=== PATIENT | female | born 1965 | race Caucasian/White ===

== ENCOUNTER 2020-07-15 14:09 | Outpatient (REF) | payer OTHER, SELFPAY | END 2020-07-15 14:10 | disposition home or self-care (01) | LOC: HO.LAB 14:09 | PROVIDERS: Visit Provider Internal Medicine | DX: Z20.828 Contact with and (suspected) exposure to other viral communicable diseases (principal) | CPT/HCPCS: C9803; U0003 ==

== ENCOUNTER 2020-09-25 10:33 | Outpatient (REF) | payer OTHER, SELFPAY | END 2020-09-25 10:34 | disposition home or self-care (01) | LOC: HO.LAB 10:33 | PROVIDERS: Visit Provider Internal Medicine | DX: Z20.822 Contact with and (suspected) exposure to COVID-19 (principal) | CPT/HCPCS: 36415; C9803; U0003 ==

== ENCOUNTER 2020-11-24 11:48 | Outpatient (REF) | payer OTHER, SELFPAY | END 2020-11-24 11:49 | disposition home or self-care (01) | LOC: HO.LAB 11:48 | PROVIDERS: Visit Provider Internal Medicine | DX: Z20.822 Contact with and (suspected) exposure to COVID-19 (principal) | CPT/HCPCS: 36415; C9803; U0003; U0005 ==

== ENCOUNTER 2020-12-04 10:13 | Outpatient (REF) | payer OTHER, SELFPAY ==
[2020-12-04 14:26] LABS: SARS COV2 PCR INHOUSE NEGATIVE (Negative)
== END 2020-12-04 10:14 | disposition home or self-care (01) ==
LOC: HO.LAB 10:13
PROVIDERS: Visit Provider Internal Medicine
DX: Z20.822 Contact with and (suspected) exposure to COVID-19 (principal)
CPT/HCPCS: C9803; U0003

== ENCOUNTER 2020-12-31 09:33 | Outpatient (REF) | payer OTHER, SELFPAY | END 2020-12-31 09:34 | disposition home or self-care (01) | LOC: HO.LAB 09:33 | PROVIDERS: Visit Provider Internal Medicine | DX: Z20.822 Contact with and (suspected) exposure to COVID-19 (principal) | CPT/HCPCS: C9803; U0003; U0005 ==

== ENCOUNTER 2021-01-09 17:15 | Emergency (ER) | payer OTHER, SELFPAY ==
--- NOTE | ~2021-01-09 | XR_ITS ---
EXAMINATION: XR CHEST CLINICAL INFORMATION: Chest pain COMPARISON: None TECHNIQUE: Frontal view of the chest was obtained. FINDINGS: No significant abnormality is noted involving the heart, lungs, mediastinum, bony thorax or soft tissues. XR/XR chest 1V IMPRESSION: Normal portable chest x-ray.
[2021-01-09 17:50] VITALS: BP 126/54; PULSE 69; RESP 16; TEMP 36.3; O2SAT 98; BMI 23.5
--- NOTE | 2021-01-09 18:32 | ECG_ITS ---
Test Reason : CP Blood Pressure : / mmHG Vent. Rate : 060 BPM Atrial Rate : 060 BPM P-R Int : 162 ms QRS Dur : 084 ms QT Int : 406 ms P-R-T Axes : 013 016 022 degrees QTc Int : 406 ms Normal sinus rhythm Normal ECG No previous ECGs available Referred By: Generic ED Physician Electronically Signed By:NATE PRATER
[2021-01-09 19:57] LABS: MANUAL DIFF FLAG NO
[2021-01-09 19:58] LABS: Basophils Percent Auto 0.5 % (0-2); Eosinophils Absolute Auto 0.1 X10*3/uL (0.0-0.4); Hematocrit 35.7 % (37-47); Hemoglobin 11.8 g/dl (12.0-16.0); Imm Gran Abs Auto 0.01 X10*3/uL (0.00-0.03); Imm Gran Pct Auto 0.1 % (0.0-0.4); Lymphocytes Absolute Auto 3.9 X10*3/uL (1.2-4.9); Mean Corpuscular HGB Conc 33.1 g/dl (31.0-35.0); Mean Corpuscular Hemoglobin 29.7 pg (27.0-33.0); Mean Corpuscular Volume 89.9 fL (80-98); Mean Platelet Volume 9.8 fL (9.4-12.3); Monocytes Absolute Auto 0.5 X10*3/uL (0.1-1.2); Neutrophils Absolute Auto 4.1 X10*3/uL (2.0-8.3); Neutrophils Percent Auto 47.4 % (45-73); Platelet Count 312 X10*3/uL (160-400); Red Blood Count 3.97 X10*6/uL (4.20-5.50); Red Cell Distribution Width 13.4 % (11.0-16.0); White Blood Count 8.7 X10*3/uL (4.8-10.8)
[2021-01-09 20:30] LABS: Alanine Aminotransferase 27 U/L (0-31); Albumin Level 4.4 g/dL (3.5-5.0); Alkaline Phosphatase 88 U/L (39-117); Anion Gap 11 (12-20); Aspartate Amino Transferase 21 U/L (5-31); Bilirubin Direct 0.2 mg/dL (0.0-0.5); Bilirubin Total 0.6 mg/dL (0.0-1.0); Blood Urea Nitrogen 16 mg/dL (9-16); Calcium 9.7 mg/dL (8.4-10.2); Carbon Dioxide 29 mmol/L (22-29); Chloride 106 mmol/L (96-108); Creatinine Clr Calc Pharmacy 97.4; Estimated Glomerular Filt Rate > 60; Glucose Random 66 mg/dL (60-115); Magnesium 2.3 mg/dL (1.6-2.6); Potassium 4.1 mmol/L (3.3-5.1); Sodium 142 mmol/L (135-145); Total Protein 7.3 g/dL (6.5-8.0)
--- NOTE | 2021-01-09 20:35 | ED_ITS ---
HPI - Chest Pain General Chief Complaint: Chest Pain Stated Complaint: Chest pain Time Seen by Provider: 01/09/21 18:48 Source: patient Mode of arrival: ambulatory History of Present Illness HPI narrative: 55-year-old female with a past medical history of GERD, C- section, presenting to the ED complaining of left-sided chest pain radiating down left arm x3 days described as pressure/tightness. Admits pain is been constant. Denies pain being worse with deep inspiration. Denies fever, chills, cough, SOB, numbness, tingling, weakness, abdominal pain, nausea/vomiting, LE edema, smoking, recent travel, history of blood clots complaint: chest heaviness Related Data Home Medications Medication Instructions Recorded Confirmed No Known Home Meds 01/06/21 01/06/21 Allergies Allergy/AdvReac Type Severity Reaction Status Date / Time No Known Allergies Allergy Verified 01/06/21 10:19 [No Known Allergies*] Review of Systems Review of Systems: Constitutional: No Fever, No Chills, No Night Sweats, No Fatigue, No Malaise Cardiovascular: + Chest Pain, No SOB, No Dyspnea on Exertion, No Orthopnea, No Edema, No Palpitations Respiratory: No Cough, No Sputum, No Dyspnea Gastrointestinal: No Nausea, No Vomiting, No Diarrhea, No Abdominal pain Musculoskeletal: No joint pain, No Myalgias Skin: No Skin Lesions, No rash Neuro: No Weakness, No Numbness, No Paresthesias, No Dizziness Yes all other systems are reviewed and are negative PMFSH Past Medical History Attestation statement: The following information was validated with the patient. Medical History (Updated 01/09/21 @ 20:43 by RIOS Orantes) GERD (gastroesophageal reflux disease) Pectus excavatum Surgical History History of section Family History Family History Father Diabetes Hypertension Mother Diabetes Hypertension Maternal Grandfather Cancer Maternal Aunt Cancer Social History Social History Alcohol intake: never Smoking Status: Never smoker Tobacco Type: Cigarette Advance Directives: No Advance Directives Information Provided: Yes Patient : No Physical Exam Vital Signs: Vital Signs: Last Vital Signs Temp 97.4 F 01/09/21 17:50 Pulse 69 01/09/21 17:50 Resp 16 01/09/21 17:50 BP 126/54 L 01/09/21 17:50 Pulse Ox 98 01/09/21 17:50 Body Mass Index 23.5 Const: General: cooperative, healthy appearing, comfortable, no acute distress, well developed, alert and awake Orientation/consciousness: patient oriented x3 Limitations: no limitations HENMT: Head: Yes normal to inspection Ears: hearing grossly normal bilaterally General nose exam: Normal external nose present Face and sinus: Yes normal facial exam Eyes: General: appearance normal, both eyes and all related structures EOM: EOMs intact bilaterally Neck: Neck: Yes normal visual inspection and Yes no meningeal signs Chest: Other: + tenderness to left anterior chest wall reproducing subjective complaint Chest palpation & inspection: normal inspection of the chest, no crepitus and tenderness Resp: Effort & Inspection: normal respiratory effort Auscultation: clear to auscultation bilaterally, no rales, no rhonchi and no wheezes Cardio: Rate: regular rate Heart sounds: S1 normal heart sound present and S2 normal heart sound present GI: Inspection: Yes normal to inspection Palpation (GI): Soft to palpation, nontender, no guarding and not rigid Skin: Rashes: no rashes Wounds: no wounds Neuro: General: patient oriented x3 and no meningeal signs Gait exam (Neuro): Normal gait present Extrem: General: Yes normal to inspection, Yes no pedal edema and Yes no calf tenderness Course Course Course Narrative: -labs unremarkable including negative troponin XR chest 1V IMPRESSION: Normal portable chest x-ray. > results discussed with patient with diplomatic interpreter/translator including worrisome signs and symptoms and strict return precautions. MDM - Chest Pain MDM Narrative Medical decision making narrative: 55-year-old female with a past medical history of GERD, , presenting to the ED complaining of left-sided chest pain radiating down left arm x3 days described as pressure/tightness. On exam VSS, NAD/well-appearing, chest pain is reproducible, lungs CTA, no LE edema or calf tenderness. Concern for ACS vs pneumonia. Unlikely PE/CHF or viral syndrome/COVID-19 Plan: EKG, labs, CXR, reassess Medical Records Data Attestation: I reviewed the patient's medical records. Lab Data Attestation: I reviewed the patient's lab results. Result diagrams: 01/09/21 19:52 01/09/21 19:51 Labs: Lab Results 01/09/21 01/09/21 01/09/21 Range/Units 19:51 19:51 19:52 WBC 8.7 (4.8-10.8) X10*3/uL RBC 3.97 L (4.20-5.50) X10*6/uL Hgb 11.8 L (12.0-16.0) g/dl Hct 35.7 L (37-47) % MCV 89.9 (80-98) fL MCH 29.7 (27.0-33.0) pg MCHC 33.1 (31.0-35.0) g/dl RDW 13.4 (11.0-16.0) % Plt Count 312 (160-400) X10*3/uL MPV 9.8 (9.4-12.3) fL Immature Gran % (Auto) 0.1 (0.0-0.4) % Neut % (Auto) 47.4 (45-73) % Lymph % (Auto) 45.0 H (20-40) % [place] % (Auto) 6.0 (2-11) % Eos % (Auto) 1.0 (0-4) % Baso % (Auto) 0.5 (0-2) % Lymph # (Auto) 3.9 (1.2-4.9) X10*3/uL [place] # (Auto) 0.5 (0.1-1.2) X10*3/uL Eos # (Auto) 0.1 (0.0-0.4) X10*3/uL Baso # (Auto) 0.0 (0.0-0.2) X10*3/uL Abs Immat Gran (auto) 0.01 (0.00-0.03) X10*3/uL Absolute Neuts (auto) 4.1 (2.0-8.3) X10*3/uL Absolute Nucleated RBC 0.000 (0.0-0.012) X10*3/uL Nucleated RBC % (auto) 0.0 (0.0-0.2) /100WBC Hold Blue Top SEE NOTE Sodium 142 (135-145) mmol/L Potassium 4.1 (3.3-5.1) mmol/L Chloride 106 (96-108) mmol/L Carbon Dioxide 29 (22-29) mmol/L Anion Gap 11 L (12-20) BUN 16 (9-16) mg/dL Creatinine 0.57 (0.5-1.4) mg/dL Estim Creat Clear Calc 97.4 Estimated GFR > 60 Random Glucose 66 (60-115) mg/dL Calcium 9.7 (8.4-10.2) mg/dL Magnesium 2.3 (1.6-2.6) mg/dL Total Bilirubin 0.6 (0.0-1.0) mg/dL Direct Bilirubin 0.2 (0.0-0.5) mg/dL AST 21 (5-31) U/L ALT 27 (0-31) U/L Alkaline Phosphatase 88 (39-117) U/L Total Protein 7.3 (6.5-8.0) g/dL Albumin 4.4 (3.5-5.0) g/dL Discharge Plan Discharge Clinical Impression: Chest pain Patient Disposition: Home, Self-Care Instructions: Chest Pain (ED) Additional Instructions: Your blood work and chest x-ray were reassuring today in the ED. It is important that he follow up with her primary care doctor as well as a senior manager. If her symptoms persist or worsen, become constant/unremitting, you have shortness of breath, or weakness please return to the ED Vivas an?lisis de vy y radiograf?a de t?rax fueron tranquilizadores hoy en el servicio de urgencias. Es importante que realice un seguimiento con vivas m?dico de atenci?n primaria y con un cardi?logo. Si sisi s?ntomas persisten o empeoran, se vuelven constantes / incesantes, tiene dificultad para respirar o debilidad, regrese al servicio de urgencias Prescriptions: No Action No Known Home Meds RF: 0 Referrals: Silviano Clayton MD [Physician] - 3 days Vanessa Puri MD [Primary Care Provider] - 2 days Print Language: [place]ese
[2021-01-09 20:37] LABS: Troponin-I High Sensitivity < 3.5 ng/L (<3.5-17.0)
[2021-01-09 20:48] VITALS: BP 113/57; PULSE 64; PULSE 67; RESP 14; O2SAT 98
== END 2021-01-09 20:56 | disposition home or self-care (01) ==
PROVIDERS: Physician Assistant; Emergency Provider Emergency Medicine; PCP Internal Medicine
DX: R07.9 Chest pain, unspecified (principal); K21.9 Gastro-esophageal reflux disease without esophagitis
CPT/HCPCS: 36415; 71045; 80048; 80076; 83735; 84484; 85025; 93005; 99283; 99285

== ENCOUNTER 2021-02-03 13:22 | Outpatient (REF) | payer OTHER, SELFPAY ==
[2021-02-04 06:41] LABS: CT PCR NOT DETECTED (Not Detect.); NG PCR NOT DETECTED (Not Detect.)
[2021-02-04 20:17] LABS: Prolactin 4.9 ng/mL
== END 2021-02-03 13:23 | disposition home or self-care (01) ==
LOC: HO.LAB 13:22
PROVIDERS: PCP Internal Medicine; Visit Provider Advanced Practice Midwife
DX: Z01.411 Encounter for gynecological examination (general) (routine) with abnormal findings (principal); R23.2 Flushing; Z20.2 Contact with and (suspected) exposure to infections with a predominantly sexual mode of transmission; K59.00 Constipation, unspecified; Z98.84 Bariatric surgery status; Z97.5 Presence of (intrauterine) contraceptive device
CPT/HCPCS: 36415; 84146; 87491; 87591

== ENCOUNTER 2021-03-24 11:33 | Outpatient (REF) | payer OTHER, SELFPAY ==
[2021-03-24 12:08] LABS: MANUAL DIFF FLAG NO
[2021-03-24 12:13] LABS: Basophils Percent Auto 0.3 % (0-2); Eosinophils Percent Auto 0.7 % (0-4); Hematocrit 37.4 % (37-47); Imm Gran Abs Auto 0.01 X10*3/uL (0.00-0.03); Imm Gran Pct Auto 0.2 % (0.0-0.4); Lymphocytes Absolute Auto 2.3 X10*3/uL (1.2-4.9); Mean Corpuscular HGB Conc 32.1 g/dl (31.0-35.0); Mean Corpuscular Volume 93.5 fL (80-98); Mean Platelet Volume 10.2 fL (9.4-12.3); Monocytes Absolute Auto 0.4 X10*3/uL (0.1-1.2); Monocytes Percent Auto 6.9 % (2-11); Neutrophils Absolute Auto 3.4 X10*3/uL (2.0-8.3); Neutrophils Percent Auto 54.9 % (45-73); Platelet Count 276 X10*3/uL (160-400); Red Cell Distribution Width 12.7 % (11.0-16.0); White Blood Count 6.1 X10*3/uL (4.8-10.8)
[2021-03-24 12:36] LABS: Alanine Aminotransferase 21 U/L (0-31); Albumin Level 4.4 g/dL (3.5-5.0); Alkaline Phosphatase 91 U/L (39-117); Anion Gap 11 (12-20); Aspartate Amino Transferase 23 U/L (5-31); Bilirubin Total 0.5 mg/dL (0.0-1.0); Blood Urea Nitrogen 16 mg/dL (9-16); Carbon Dioxide 29 mmol/L (22-29); Chloride 106 mmol/L (96-108); Cholesterol 237 mg/dL; Estimated Glomerular Filt Rate > 60; Glucose Fasting 94 mg/dL (60-99); HDL Cholesterol 74 mg/dL; LDL Cholesterol Calculated 149 mg/dl; Potassium 4.4 mmol/L (3.3-5.1); Sodium 142 mmol/L (135-145); Total Protein 7.4 g/dL (6.5-8.0); Triglycerides 70 mg/dL
[2021-03-26 08:55] LABS: HBS Num1 0.16 mIU/mL (0-7.99); Hepatitis A Antibody IgM 0.21 Index (0-0.79); ~HepC Num1 0.19 S/CO (0.00-0.79); ~Hepatitis A Antibody IgM Nonreactive (Nonreactive); ~Hepatitis B Surface Antibody NONREACTIVE (Nonreactive); ~Hepatitis C Antibody Nonreactive (Nonreactive)
[2021-03-26 08:56] LABS: HBc Num1 0.16 S/CO (0.00-0.79); HBsAGNum1 0.15 S/CO (0.00-0.99); Hepatitis B Core Antibody Nonreactive (Nonreactive); Hepatitis B Surface Antigen Negative (Negative)
[2021-04-01 13:12] LABS: Vitamin D 25-OH, D2 <4 ng/mL; Vitamin D 25-OH, D3 26 ng/mL; Vitamin D 25-OH, Total 26 ng/mL (30-100)
== END 2021-03-24 11:34 | disposition home or self-care (01) ==
LOC: HO.LAB 11:33
PROVIDERS: PCP Internal Medicine; Visit Provider Internal Medicine
DX: Z01.84 Encounter for antibody response examination (principal); Z11.59 Encounter for screening for other viral diseases; D64.9 Anemia, unspecified; E55.9 Vitamin D deficiency, unspecified; Z20.5 Contact with and (suspected) exposure to viral hepatitis; E78.5 Hyperlipidemia, unspecified; K21.9 Gastro-esophageal reflux disease without esophagitis
CPT/HCPCS: 36415; 80053; 80061; 82306; 85025; 86704; 86706; 86709; 86803; 87340

== ENCOUNTER 2021-03-25 10:21 | Outpatient (REF) | payer OTHER, SELFPAY ==
[2021-03-26 10:41] LABS: Follicle Stimulating Hormone 59.1 mIU/mL
== END 2021-03-25 10:22 | disposition home or self-care (01) ==
LOC: HO.LAB 10:21
PROVIDERS: PCP Internal Medicine; Visit Provider Advanced Practice Midwife
DX: R23.2 Flushing (principal)
CPT/HCPCS: 36415; 83001

== ENCOUNTER 2021-03-30 13:54 | Outpatient (REF) | payer OTHER, SELFPAY ==
--- NOTE | ~2021-03-30 | MM_ITS ---
EXAMINATION: MM SCREENING DIGITAL BREAST TOMOSYNTHESIS, BILATERAL CLINICAL INFORMATION: Screening. Asymptomatic. The lifetime risk of breast cancer based on the Tyrer-Cuzick Model is 11%. COMPARISON: Mammography: 02/13/2019, 01/15/2018, 11/10/2016 TECHNIQUE: Digital breast tomosynthesis is performed in both the craniocaudal and mediolateral oblique views along with computer-aided detection (CAD). Synthesized 2D images are generated from the tomosynthesis. FINDINGS: There are scattered areas of fibroglandular density (ACR BI-RADS breast composition Category b). There are no significant masses, abnormal calcifications, or other abnormalities. Parenchymal pattern is similar to prior exams. No significant changes. MM/MM tomosynthesis screening BI IMPRESSION: No mammographic evidence of malignancy. ASSESSMENT: BI-RADS 1: Negative RECOMMENDATION: Routine annual mammography screening. This patient's information was entered into a reminder system with a target due date for their next mammogram.
== END 2021-03-30 13:55 | disposition home or self-care (01) ==
LOC: HO.MAMMO 13:54
PROVIDERS: Visit Provider Internal Medicine
DX: Z12.31 Encounter for screening mammogram for malignant neoplasm of breast (principal)
CPT/HCPCS: 77063; 77067

== ENCOUNTER → 2021-04-16 11:24 | Outpatient (BNVA) | payer OTHER, SELFPAY | PROVIDERS: PCP Internal Medicine; Referring Provider Internal Medicine; Visit Provider Nurse Practitioner Family | DX: Z12.11 Encounter for screening for malignant neoplasm of colon (principal); K59.01 Slow transit constipation | CPT/HCPCS: 99212 ==

== ENCOUNTER → 2021-05-03 09:00 | Outpatient (BNVA) | payer OTHER, SELFPAY | PROVIDERS: PCP Internal Medicine; Visit Provider Advanced Practice Midwife | DX: Z30.432 Encounter for removal of intrauterine contraceptive device (principal) | CPT/HCPCS: 58301 ==

== ENCOUNTER 2021-05-12 11:42 | Outpatient (REF) | payer OTHER, SELFPAY ==
[2021-05-12 12:24] LABS: COVID-19 Test Negative (Negative)
== END 2021-05-12 11:43 | disposition home or self-care (01) ==
LOC: HO.LAB 11:42
PROVIDERS: PCP Internal Medicine; Visit Provider Internal Medicine
DX: Z20.822 Contact with and (suspected) exposure to COVID-19 (principal)
CPT/HCPCS: 36415; 87635; C9803

== ENCOUNTER 2021-05-18 09:01 | Outpatient (REF) | payer OTHER, SELFPAY | END 2021-05-18 09:02 | disposition home or self-care (01) | LOC: HO.LAB 09:01 | PROVIDERS: PCP Internal Medicine; Visit Provider Internal Medicine | DX: Z20.822 Contact with and (suspected) exposure to COVID-19 (principal) | CPT/HCPCS: C9803; U0003; U0005 ==

== ENCOUNTER 2021-08-24 17:21 | Emergency (ER) | payer OTHER, SELFPAY ==
--- NOTE | ~2021-08-24 | XR_ITS ---
EXAMINATION: XR CHEST CLINICAL INFORMATION: Shortness of breath. COMPARISON: Chest x-ray 01/09/2021 TECHNIQUE: Frontal view of the chest was obtained. 6:41 PM FINDINGS: No significant abnormality is noted involving the heart, lungs, mediastinum, bony thorax or soft tissues. XR/XR chest 1V IMPRESSION: Unremarkable examination.
[2021-08-24 18:18] VITALS: BP 104/64; PULSE 135; RESP 16; TEMP 38.6; BMI 21.1
--- NOTE | 2021-08-24 18:23 | ECG_ITS ---
Test Reason : migraine Blood Pressure : / mmHG Vent. Rate : 113 BPM Atrial Rate : 113 BPM P-R Int : 138 ms QRS Dur : 080 ms QT Int : 316 ms P-R-T Axes : 062 058 035 degrees QTc Int : 433 ms Sinus tachycardia Nonspecific ST and T wave abnormality Borderline ECG When compared with ECG of 09-JAN-2021 18:38, Nonspecific ST and T wave abnormality present Referred By: Kati Lal Electronically Signed By:NATE PRATER
[2021-08-24 21:26] LABS: MANUAL DIFF FLAG NO
[2021-08-24 21:27] LABS: Basophils Percent Auto 0.1 % (0-2); Eosinophils Percent Auto 0.2 % (0-4); Hematocrit 33.5 % (37.0-47.0); Hemoglobin 11.4 g/dl (12.0-16.0); Imm Gran Abs Auto 0.02 X10*3/uL (0.00-0.03); Imm Gran Pct Auto 0.2 % (0.0-0.4); Lymphocytes Absolute Auto 1.2 X10*3/uL (1.2-4.9); Lymphocytes Percent Auto 14.6 % (20-40); Mean Corpuscular Hemoglobin 30.7 pg (27.0-33.0); Mean Corpuscular Volume 90.3 fL (80.0-98.0); Mean Platelet Volume 9.4 fL (9.4-12.3); Monocytes Absolute Auto 1.1 X10*3/uL (0.1-1.2); Monocytes Percent Auto 12.9 % (2-11); Neutrophils Absolute Auto 6.1 x10*3/uL (2.0-8.3); Platelet Count 245 X10*3/uL (160-400); Red Blood Count 3.71 X10*6/uL (4.20-5.50); Red Cell Distribution Width 12.6 % (11.0-16.0); White Blood Count 8.5 X10*3/uL (4.8-10.8)
[2021-08-24 21:33] LABS: COVID-19 Test Positive (Negative)
[2021-08-24 21:39] LABS: Anion Gap 12 (12-20); Blood Urea Nitrogen 11 mg/dL (9-16); Calcium 9.3 mg/dL (8.4-10.2); Carbon Dioxide 25 mmol/L (22-29); Chloride 103 mmol/L (96-108); Creatinine Clr Calc Pharmacy 101.5; Estimated Glomerular Filt Rate > 60; Glucose Random 88 mg/dL (60-115); Potassium 3.9 mmol/L (3.3-5.1); Sodium 136 mmol/L (135-145)
--- NOTE | 2021-08-24 22:46 | ED_ITS ---
HPI - URI/Sore Throat General Chief Complaint: Upper Respiratory Symptoms Stated Complaint: Headache Source: patient Mode of arrival: ambulatory Limitations: language barrier History of Present Illness HPI Narrative: 55-year-old female presents with upper respiratory symptoms. Stated that she started feeling sick on Monday, her niece tested positive for COVID-19. MD elicited complaint: fever, cough, sore throat and nasal congestion Onset (ago): day(s) Consistency: constant Severity: moderate Description of mucous: clear and watery Able to tolerate fluids by mouth: Yes Exacerbating factors: exertion Relieving factors: nothing Context: sick contacts Associated symptoms: fever, chills, myalgias, headache, rhinorrhea, nasal congestion and cough Treatments prior to arrival: none Related Data Home Medications Medication Instructions Recorded Confirmed No Known Home Meds 05/27/21 05/27/21 Allergies Allergy/AdvReac Type Severity Reaction Status Date / Time No Known Allergies Allergy Verified 05/27/21 15:27 [No Known Allergies*] Review of Systems Review of Systems: Constitutional: positive Fever, positive Chills, positive fatigue, positive Mal aise ENT/Mouth: positive sore throat, positive runny nose Eyes: No Discharge Cardiovascular: No Chest Pain, No SOB Respiratory: Positive Cough, No Sputum, No Wheezing, No Smoke Exposure, No Dyspnea Gastrointestinal: No Nausea, No Vomiting, No Diarrhea Genitourinary: no irregular bleeding, No Dysuria, No Urinary Frequency, No Hematuria, No Urinary Incontinence, No Urgency, No Flank Pain, Musculoskeletal: positive Myalgia Skin: No rash Neuro: Positive Headache Yes all other systems are reviewed and are negative PMFSH Past Medical History Attestation statement: The following information was validated with the patient. Source: old records reviewed Medical History GERD (gastroesophageal reflux disease) Left arm pain Neck pain Pectus excavatum Pure hypercholesterolemia Skin lesion Surgical History H/O bariatric surgery History of section Family History Family History Father Diabetes Hypertension Mother Diabetes Hypertension Maternal Grandfather Cancer Maternal Aunt Cancer Social History Social History Housing: House Alcohol intake: never Patient Tobacco Use Status: Never used Tobacco e-Cigarette/Vaping Use: Never Used Second Hand Smoke Exposure: No Advance Directives: No Advance Directives Information Provided: Yes Patient : No service: No Current occupational status: employed Current occupational exposures/hazards: No Physical Exam Vital Signs: Vital Signs: Last Vital Signs Temp 100.2 F 08/24/21 23:17 Pulse 99 08/24/21 23:09 Resp 20 08/24/21 23:09 BP 101/50 L 08/24/21 23:17 Pulse Ox 95 08/24/21 23:17 BMI result Body Mass Index 21.1 Appearance: Alert. Oriented X3. Mild distress. Afebrile. Appears nontoxic. Eyes: Pupils equal, round and reactive to light. Sclera nonicteric. ENT: Pharynx normal. Moist mucous membranes. Neck: Normal inspection. Neck supple. CVS: Tachycardic heart rate and rhythm. Brisk capillary refill to all extremities. Respiratory: No respiratory distress. Breath sounds normal. Abdomen: Soft and nontender. Skin: Skin warm and dry. Normal skin color. Normal skin turgor. Extremities: No lower extremity edema. Gait well-balanced well coordinated. Neuro: No motor deficit. No sensory deficit. Cranial nerves 2-12 intact. Course Course Course Narrative: 51-year-old female presents with upper respiratory symptoms. Has had positive COVID-19 contacts. Tested positive for COVID-19 in the emergency department. Lab values are unremarkable. O2 sats above 95% on room air. Appears nontoxic. Neurovascularly intact. Speaking in complete sentences. Will give supportive measures and discharge home. Patient does understand that if symptoms exacerbate that she must return further evaluation. 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 Google translate utilized for discharge instructions. MDM - URI/Sore Throat Differential Diagnosis Differential diagnosis: Likely upper respiratory infection, sinusitis, viral in fection, bronchitis, influenza and pharyngitis Medical Records Attestation: I reviewed the patient's medical records. Lab Data Attestation: I reviewed the patient's lab results. Result diagrams: 08/24/21 21:20 08/24/21 21:20 Labs: Lab Results 08/24/21 08/24/21 08/24/21 Range/Units 21:20 21:20 21:20 WBC 8.5 (4.8-10.8) X10*3/uL RBC 3.71 L (4.20-5.50) X10*6/uL Hgb 11.4 L (12.0-16.0) g/dl Hct 33.5 L (37.0-47.0) % MCV 90.3 (80.0-98.0) fL MCH 30.7 (27.0-33.0) pg MCHC 34.0 (31.0-35.0) g/dl RDW 12.6 (11.0-16.0) % Plt Count 245 (160-400) X10*3/uL MPV 9.4 (9.4-12.3) fL Immature Gran % (Auto) 0.2 (0.0-0.4) % Neut % (Auto) 72.0 (45-73) % Lymph % (Auto) 14.6 L (20-40) % [place] % (Auto) 12.9 H (2-11) % Eos % (Auto) 0.2 (0-4) % Baso % (Auto) 0.1 (0-2) % Lymph # (Auto) 1.2 (1.2-4.9) X10*3/uL [place] # (Auto) 1.1 (0.1-1.2) X10*3/uL Eos # (Auto) 0.0 (0.0-0.4) X10*3/uL Baso # (Auto) 0.0 (0.0-0.2) X10*3/uL Abs Immat Gran (auto) 0.02 (0.00-0.03) X10*3/uL Absolute Neuts (auto) 6.1 (2.0-8.3) x10*3/uL Absolute Nucleated RBC 0.000 (0.0-0.012) X10*3/uL Nucleated RBC % (auto) 0.0 (0.0-0.2) /100WBC Sodium 136 (135-145) mmol/L Potassium 3.9 (3.3-5.1) mmol/L Chloride 103 (96-108) mmol/L Carbon Dioxide 25 (22-29) mmol/L Anion Gap 12 (12-20) BUN 11 (9-16) mg/dL Creatinine 0.57 (0.5-1.4) mg/dL Estim Creat Clear Calc 101.5 Estimated GFR > 60 Random Glucose 88 (60-115) mg/dL Calcium 9.3 D (8.4-10.2) mg/dL COVID-19 (BRIGIDA) Positive A (Negative) COVID-19 Clin Com See Note Imaging Data Chest x-ray: Attestation: I personally reviewed and interpreted this imaging study as follows: Radiologist's impression: EXAMINATION: XR CHEST CLINICAL INFORMATION: Shortness of breath. COMPARISON: Chest x-ray 01/09/2021 TECHNIQUE: Frontal view of the chest was obtained. 6:41 PM FINDINGS: No significant abnormality is noted involving the heart, lungs, mediastinum, bony thorax or soft tissues. XR/XR chest 1V IMPRESSION: Unremarkable examination. ECG Data Attestation: I personally reviewed and interpreted this ECG as follows: ECG interpretation date: 08/24/21 ECG interpretation time: 21:12 Prior ECG tracings: available for review Interpretation: Vent. rate 113 BPM VT interval 138 ms QRS duration 80 ms QT/QTc 316/433 ms P-R-T axes 62 58 35 Sinus tachycardia Otherwise normal ECG When compared with ECG of 09-JAN-2021 18:38, Vent. rate has increased BY 53 BPM Discharge Plan Discharge Clinical Impression: COVID-19 Patient Disposition: Home, Self-Care Instructions: Covid-19 Viral Syndrome and Novel Coronavirus (ED) Hey/Ath, COVID-19 (Coronavirus Disease 2019) (ED) Additional Instructions: [place] positivo por COVID-19. Mantenga el aislamiento social seg?n las pautas estatales y federales. Alterne Tylenol 650 mg cada 6 horas y Motrin 600 mg cada 6 horas seg?n sea necesario para el manejo del dolor y el control de la fiebre. Si shaina medicamentos para la tos y el resfriado de venta della, shiloh las instrucciones y s?galas. Si los medicamentos para la tos y el resfriado de venta della contienen Tylenol, que tambi?n se llama acetaminof?n, no tome Tylenol. Anote la hora a la que shaina Tylenol y Motrin para evitar carolina sobredosis accidental. Puede usar un inhalador de albuterol para ayudar con la tos y la falta de aire. Si los s?ntomas empeoran, regrese al departamento de emergencias. Ivana por elegir césar departamento de emergencias para pinto evaluaci?n. Jessica un seguimiento con pinto m?dico de atenci?n primaria seg?n sea necesario. Regrese al departamento de emergencias por cualquier s?ntoma nuevo, preocupante o que empeore. You tested positive for COVID-19. Please maintain social isolation per State and Federal guidelines. Please alternate Tylenol 650 mg every 6 hours and Motrin 600 mg every 6 hours as needed for pain management and fever control. If you take aetc-nfq-vgoeoiy cough and cold medication please read the instructions and follow them. If dyph-kra-htgyiib cough and cold medication contains Tylenol which is also called acetaminophen, then do not take Tylenol. Please write down what time you take Tylenol and Motrin to prevent accidental overdose. You may use albuterol inhaler to help with cough and shortness of breath. If symptoms worsen please return to the emergency department. Thank you for choosing this emergency department for evaluation. Please follow-up with primary care physician as needed. Return to the emergency de partment for any new, concerning, or worsening symptoms. Prescriptions: No Action No Known Home Meds RF: 0 Stand Alone Forms: Work/School Release
[2021-08-24 23:09] VITALS: PULSE 99; RESP 20
[2021-08-24] MEDS: Acetaminophen 325 MG TABLET 650 MG PO (23:15)
[2021-08-24] MEDS: Albuterol Sulfate 90 MCG 8 GM INHALER 2 PUFF INHALE (23:16)
[2021-08-24 23:17] VITALS: BP 101/50; TEMP 37.9; O2SAT 95
[2021-08-25] VITALS: BP 101/45; PULSE 99; RESP 18; O2SAT 97
== END 2021-08-25 00:21 | disposition home or self-care (01) ==
PROVIDERS: Emergency Medicine; Emergency Provider Internal Medicine; PCP Internal Medicine
DX: U07.1 COVID-19 (principal)
CPT/HCPCS: 36415; 71045; 80048; 85025; 87635; 93005; 99284

== ENCOUNTER → 2021-11-05 11:55 | Outpatient (BNVA) | payer OTHER, SELFPAY | PROVIDERS: PCP Internal Medicine; Referring Provider Internal Medicine; Visit Provider Nurse Practitioner Family | DX: Z12.11 Encounter for screening for malignant neoplasm of colon (principal) | CPT/HCPCS: 99212 ==

== ENCOUNTER 2021-12-10 07:49 | Day surgery (SDC) | payer OTHER, SELFPAY ==
[2021-10-04 11:34] VITALS: BMI 21.9
--- NOTE | 2021-10-07 13:08 | P.CONAN_ITS ---
Documented by User: Addie Tucker NP 10/07/21 13:10 HPI - Anesthesia Eval Consult details Narrative: 55yo F for Colonoscopy PMFSH Active Problems Active Problems: All Active Problems (Updated 10/04/21 @ 11:37 by Daksha Kennedy RN) COVID-19 (Acute) Left arm pain (Acute) Neck pain (Acute) Pure hypercholesterolemia (Acute) Skin lesion (Acute) Pectus excavatum (Acute) GERD (gastroesophageal reflux disease) (Acute) Past Medical History Medical History GERD (gastroesophageal reflux disease) Left arm pain Neck pain Pectus excavatum Personal history of COVID-19 Pure hypercholesterolemia Skin lesion Family History Family History Father Diabetes Hypertension Mother Diabetes Hypertension Maternal Grandfather Cancer Maternal Aunt Cancer Surgical History Surgical History H/O bariatric surgery History of section Social History Social History Housing: House Are you a primary long term acute care registered nurse to a significant other at home: Yes Alcohol intake: never Patient Tobacco Use Status: Never used Tobacco e-Cigarette/Vaping Use: Never Used Second Hand Smoke Exposure: No service: No Current occupational status: employed Current occupational exposures/hazards: No Meds Allergies Allergy/AdvReac Type Severity Reaction Status Date / Time ibuprofen [From Allergy Intermediate Hives,lip Verified 10/04/21 11:34 Motrin] swelling Home Medications Medication Instructions Recorded Confirmed Last Taken Type bisacodyl 5 mg mg PO 10/04/21 Unknown History tablet,delayed release docusate sodium 100 1 cap PO DAILY 10/04/21 10/04/21 Unknown History mg capsule polyethylene glycol g PO 10/04/21 Unknown History 3350 17 gram/dose oral powder Exam Exam Date and Time: October 07, 2021 1308 Height,Weight and Vital Signs: Height 5 ft 4 in Weight 58.06 kg Pertinent Lab Results Pertinent Lab Results: Laboratory Tests 08/24/21 08/24/21 21:20 21:20 WBC 8.5 Hgb 11.4 L Hct 33.5 L Plt Count 245 Sodium 136 Potassium 3.9 Chloride 103 Carbon Dioxide 25 BUN 11 Creatinine 0.57 Narrative Narrative: Chest Xray 08/2021 FINDINGS: No significant abnormality is noted involving the heart, lungs, mediastinum, bony thorax or soft tissues. XR/XR chest 1V IMPRESSION: Unremarkable examination. Assessment and Plan Assessment Anesthesia Assessment: Chart Reviewed Documented by User: Comfort Pierson MD 10/08/21 10:10 [facility] Past Medical History Medical History GERD (gastroesophageal reflux disease) Left arm pain Neck pain Pectus excavatum Personal history of COVID-19 Pure hypercholesterolemia Skin lesion Functional capacity: independent ambulation Patient : No Family History Family History Father Diabetes Hypertension Mother Diabetes Hypertension Maternal Grandfather Cancer Maternal Aunt Cancer Family history of problems with anesthesia: No Surgical History Surgical History H/O bariatric surgery History of section History of Problems with Anesthesia: No Social History Social History Housing: House Are you a primary long term acute care registered nurse to a significant other at home: Yes Alcohol intake: never Patient Tobacco Use Status: Never used Tobacco e-Cigarette/Vaping Use: Never Used Second Hand Smoke Exposure: No service: No Current occupational status: employed Current occupational exposures/hazards: No Meds Allergies Allergy/AdvReac Type Severity Reaction Status Date / Time ibuprofen [From Allergy Intermediate Hives,lip Verified 10/04/21 11:34 Motrin] swelling Home Medications Medication Instructions Recorded Confirmed Last Taken Type bisacodyl 5 mg mg PO 10/04/21 Unknown History tablet,delayed release docusate sodium 100 1 cap PO DAILY 10/04/21 10/04/21 Unknown History mg capsule polyethylene glycol g PO 10/04/21 Unknown History 3350 17 gram/dose oral powder Exam Airway Mallampati Class: III TM Dist: >3cm Neck ROM: Full Heart: RRR Lungs: CTA Assessment and Plan Final Anesthetic Review Family History of Problems with Anesthesia: No History of Problems with Anesthesia: No ASA Class: III Final Preanesthetic Review: No Changes in Pt Med Stat, Meds/Allgs Chart Reviewed, Consent Obtained/Reviewed and Anes Risks/Benef Reviewed Patient Risk: Low Procedure Risk: Low Anesthetic Plan Anesthetic Plan: MAC: Disposition: Standard PACU
--- NOTE | 2021-10-08 07:46 | PC.NURSE ---
pt cancelled self unable to do prep
--- NOTE | 2021-12-09 09:22 | HO.ANESPROP2 ---
Documented by User: Addie Tucker NP 12/09/21 09:24 HPI - Anesthesia Eval Consult details Narrative: 56yo F for Colonoscopy PMFSH Active Problems Active Problems: All Active Problems (Updated 11/24/21 @ 11:43 by Vanessa Hilario MD) Hypovitaminosis D (Acute) Allergies (Acute) Pruritic rash (Acute) COVID-19 (Acute) Left arm pain (Acute) Neck pain (Acute) Pure hypercholesterolemia (Acute) Skin lesion (Acute) Pectus excavatum (Acute) GERD (gastroesophageal reflux disease) (Acute) Past Medical History Medical History GERD (gastroesophageal reflux disease) Hypovitaminosis D Left arm pain Neck pain Pectus excavatum Personal history of COVID-19 Pure hypercholesterolemia Skin lesion Functional capacity: independent ambulation Family History Family History Father Diabetes Hypertension Mother Diabetes Hypertension Maternal Grandfather Cancer Maternal Aunt Cancer Family history of problems with anesthesia: No Surgical History Surgical History H/O bariatric surgery History of section History of Problems with Anesthesia: No Social History Social History Housing: House 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 Alcohol intake: never Patient Tobacco Use Status: Never used Tobacco e-Cigarette/Vaping Use: Never Used Second Hand Smoke Exposure: No Are you DNR?: No Advance Directives: No Advance Directives Information Provided: Yes Advance Directives on File: No Patient : No service: No Current occupational status: employed Current occupational exposures/hazards: No Meds Allergies Allergy/AdvReac Type Severity Reaction Status Date / Time ibuprofen [From Motrin] Allergy Intermediate Hives,lip Verified 11/24/21 10:41 swelling Home Medications Medication Instructions Recorded Confirmed Last Taken Type No Known Home Meds 11/24/21 11/24/21 Unknown History Exam Exam Date and Time: December 09, 2021 0922 Height,Weight and Vital Signs: Height 5 ft 4 in Weight 58.06 kg Pertinent Lab Results Pertinent Lab Results: Laboratory Tests 08/24/21 08/24/21 21:20 21:20 WBC 8.5 Hgb 11.4 L Hct 33.5 L Plt Count 245 Sodium 136 Potassium 3.9 Chloride 103 Carbon Dioxide 25 BUN 11 Creatinine 0.57 Narrative Narrative: EKG 08/2021 Vent. Rate : 113 BPM ? ? Atrial Rate : 113 BPM ?? P-R Int : 138 ms? QRS Dur : 080 ms ? ? QT Int : 316 ms ? ? ? P-R-T Axes : 062 058 035 degrees ?? QTc Int : 433 ms ? Sinus tachycardia Nonspecific ST and T wave abnormality Borderline ECG When compared with ECG of 09-JAN-2021 18:38, Nonspecific ST and T wave abnormality present CXR 08/2021 XR chest 1V IMPRESSION: Unremarkable examination. Assessment and Plan Assessment Anesthesia Assessment: Chart Reviewed Final Anesthetic Review Family History of Problems with Anesthesia: No History of Problems with Anesthesia: No Documented by User: Arabella Parikh MD 12/10/21 08:53 PMFSH Past Medical History Medical History GERD (gastroesophageal reflux disease) Hypovitaminosis D Left arm pain Neck pain Pectus excavatum Personal history of COVID-19 Pure hypercholesterolemia Skin lesion Family History Family History Father Diabetes Hypertension Mother Diabetes Hypertension Maternal Grandfather Cancer Maternal Aunt Cancer Surgical History Surgical History H/O bariatric surgery History of section Social History Social History Housing: House 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 Alcohol intake: never Patient Tobacco Use Status: Never used Tobacco e-Cigarette/Vaping Use: Never Used Second Hand Smoke Exposure: No Are you DNR?: No Advance Directives: No Advance Directives Information Provided: Yes Advance Directives on File: No Patient : No service: No Current occupational status: employed Current occupational exposures/hazards: No Meds Allergies Allergy/AdvReac Type Severity Reaction Status Date / Time ibuprofen [From Motrin] Allergy Intermediate Hives,lip Verified 11/24/21 10:41 swelling Home Medications Medication Instructions Recorded Confirmed Last Taken Type No Known Home Meds 11/24/21 11/24/21 Unknown History Exam Airway Mallampati Class: II TM Dist: >3cm Neck ROM: Full Loose/Missing/Broken Teeth: No Heart: RRR Lungs: CTA Assessment and Plan Assessment Anesthesia Assessment: Anesthesia Plan Discussed Final Anesthetic Review NPO: Yes ASA Class: II Final Preanesthetic Review: Meds/Allgs Chart Reviewed, Consent Obtained/Reviewed and Anes Risks/Benef Reviewed Patient Risk: Low Procedure Risk: Low Anesthetic Plan Anesthetic Plan: MAC: Disposition: Standard PACU
[2021-12-10 08:25] VITALS: BP 121/49; PULSE 65; RESP 16; TEMP 36.8; O2SAT 96
--- NOTE | 2021-12-10 08:33 | MHC.SHP ---
Pre-Procedural Eval Section A Date of Service: 12/10/21 The patient is an INPATIENT: No The History & Physical has been completed within 30 days and I have reviewed it.: No Section B Chief Complaint: Screening Details of Present Illness: colon cancer screening Relevant Family History (Specify if Yes): No Relevant Social History: None Present Medications: see Short Stay Collaborative assessment Medical History: Significant History (GERD (gastroesophageal reflux disease) Left arm pain Neck pain Pectus excavatum Personal history of COVID-19 Pure hypercholesterolemia Skin lesion) History of Previous Operations: Relevant previous surgery/procedure and date(s) (H/O bariatric surgery History of section) Allergies: Allergies Allergy/AdvReac Type Severity Reaction Status Date / Time ibuprofen [From Motrin] Allergy Intermediate Hives,lip Verified 11/24/21 10:41 swelling Review of Systems Sugical H&P ROS: Negative: Constitution, Cardiovascular, Respiratory and Gastrointestinal Exam Surgical H&P Exam: Normal: Heart, Normal: Lungs, Normal: Extremities and Normal: Abdomen Plan Diagnosis/Plan: Unchanged I have reviewed the history and physical and performed a pertinent physical examination on my patient. No changes have occurred unless specified.
--- NOTE | 2021-12-10 08:34 | P.BOP_ITS ---
Brief Operative Note Date of Service: 12/10/21 Pre-op diagnosis: Colon cancer screening Post-op diagnosis: other (Colon polyps, diverticulosis, hemorrhoids) Procedure: COLONOSCOPY TILL CECUM WITH BIOPSIES AND SNARE POLYPECTOMY Consent: Indications for the procedure and potential complications of bleeding, perforation, reaction to medications and missed diagnosis were discussed with the patient and informed consent was obtained. Instrument: Olympus PCF H 190 L variable stiffness pediatric colonoscope Monitoring: Vital signs and clinical assessment, intermittent blood pressure monitoring, continuous EKG monitoring, Pulse oximetry and Carbon Dioxide monitoring were done throughout the procedure. Colon withdrawl time was 21 minutes. Procedure: The patient was placed in the left lateral decubitis position and pre-procedure medications were administered. After a digital rectal examination of the ano-rectum, the video colonoscope was inserted into the rectum and advanced through the colon to the cecum. The colonoscope was slowly withdrawn in a retrograde panoramic fashion and the colon mucosa was carefully examined including a retroflexed view of the rectum. Findings and interventions are described below. Procedure Difficulty: Without difficulty Findings: Terminal Ileum: Not evaluated Cecum: A 3-4 mm sessile polyp removed with a cold bx Ascending Colon: A 7-8 mm sessile polyp removed with a cold snare. A 12-15 mm sessile polyp in the distal AC removed with a hot snare. Transverse Colon: A 7-8 mm elongated polyp versus fold in the distal transverse colon at 55 cms - biopsied Descending Colon: Moderate diverticulosis Sigmoid Colon: A 6-7 mm sessile polyp removed with a cold snare. A Moderate diverticulosis Rectum: Normal Ano-rectum: Small internal hemorrhoids Colon preparation: Good after some irrigation (pt took half the colon prep) Impression and Post Procedure Diagnosis: Colonoscopy Findings: Five small to medium sized polyps removed Moderate diverticulosis seen in the left colon Small hemorrhoids on retroflexed exam. Plan: Await pathology results Patient has an appointment on 12/27/21 in the [facility] with Ania Jaquez FNP-BC. Repeat Colonoscopy interval based on path results - in 3 years if polyps are adenomatous and 10 years if polyps are hyperplastic. Above findings were reviewed with the patient and colon polyps and diverticulosis handouts were given in the discharge area Surgeon: Susanna Salcido MD Anesthesia: MAC (Fidelia Gipson CRNA) Was an Dynamometer Tuner used for this Procedure?: Yes Dynamometer Tuner: Azeb Arrieta Estimated blood loss (mL): 0 Pathology: other (A- CECAL POLYP B- ASCENDING COLON POLYPS C- TRANSVERSE COLON BIOPSIES AT 55CMS D- SIGMOID COLON POLYP) Condition: stable Disposition: PACU
[2021-12-10] MEDS: Lactated Ringers 1,000 ML 100 ML IVCONT (08:38)
--- NOTE | 2021-12-10 08:52 | W.PM.OPN ---
Operative Note Operative Note Date of Service: 12/10/21 Narrative: Pre-op diagnosis: Colon cancer screening Post-op diagnosis:?other (Colon polyps, diverticulosis, hemorrhoids) Procedure: COLONOSCOPY TILL CECUM WITH BIOPSIES AND SNARE POLYPECTOMY Consent: Indications for the procedure and potential complications of bleeding, perforation, reaction to medications and missed diagnosis were discussed with the patient and informed consent was obtained. Instrument: Olympus PCF H 190 L variable stiffness pediatric colonoscope Monitoring: Vital signs and clinical assessment, intermittent blood pressure monitoring, continuous EKG monitoring, Pulse oximetry and Carbon Dioxide monitoring were done throughout the procedure. Colon withdrawl time was 21 minutes. Procedure: The patient was placed in the left lateral decubitis position and pre-procedure medications were administered. After a digital rectal examination of the ano-rectum, the video colonoscope was inserted into the rectum and advanced through the colon to the cecum. The colonoscope was slowly withdrawn in a retrograde panoramic fashion and the colon mucosa was carefully examined including a retroflexed view of the rectum. Findings and interventions are described below. Procedure Difficulty: Without difficulty Findings: Terminal Ileum: Not evaluated Cecum:? A 3-4 mm sessile polyp removed with a cold bx Ascending Colon:? A 7-8 mm sessile polyp removed with a cold snare. A 12-15 mm sessile polyp in the distal AC removed with a hot snare. Transverse Colon:? A 7-8 mm elongated polyp versus fold in the distal transverse colon at 55 cms - biopsied Descending Colon:? Moderate diverticulosis Sigmoid Colon:? A 6-7 mm sessile polyp removed with a cold snare. A Moderate diverticulosis Rectum:? Normal Ano-rectum:? Small internal hemorrhoids Colon preparation:? Good after some irrigation (pt took half the colon prep) Impression and Post Procedure Diagnosis: Colonoscopy Findings: Five small to medium sized polyps removed Moderate diverticulosis seen in the left colon Small hemorrhoids on retroflexed exam. Plan: Await pathology results Patient has an appointment on 12/27/21 in the GI Clinic with Ania Jaquez FNP-BC. Repeat Colonoscopy interval based on path results - in 3 years if polyps are adenomatous and 10 years if polyps are hyperplastic. Above findings were reviewed with the patient and colon polyps and diverticulosis handouts were given in the discharge area Surgeon: Susanna Salcido MD Anesthesia:?MAC (Fidelia Gipson, AVTAR) Was an Electrical Engineering Technician used for this Procedure?:?Yes Electrical Engineering Technician:?Azeb Arrieta Estimated blood loss (mL):?0 Pathology:?other (A- CECAL POLYP? B- ASCENDING COLON POLYPS? C- TRANSVERSE COLON BIOPSIES AT 55CMS? D- SIGMOID COLON POLYP) Condition:?stable Disposition:?PACU
[2021-12-10 09:39] VITALS: BP 97/55; PULSE 70; RESP 16; TEMP 36.3; O2SAT 99
[2021-12-10 09:54] VITALS: BP 112/63; PULSE 65; RESP 18; TEMP 36.2; O2SAT 100
== END 2021-12-10 10:37 | disposition home or self-care (01) ==
PROVIDERS: PCP Internal Medicine; Visit Provider Internal Medicine Gastroenterology
PROC: 0DJD8ZZ Inspection of Lower Intestinal Tract, Via Natural or Artificial Opening Endoscopic (ICD-10-PCS; CPT 45378; principal; 2021-12-10 08:40)
DX: Z12.11 Encounter for screening for malignant neoplasm of colon (principal); D12.2 Benign neoplasm of ascending colon; K63.5 Polyp of colon; K57.30 Diverticulosis of large intestine without perforation or abscess without bleeding; K64.8 Other hemorrhoids; K59.01 Slow transit constipation; K21.9 Gastro-esophageal reflux disease without esophagitis; Q67.6 Pectus excavatum; Z98.84 Bariatric surgery status; Z88.8 Allergy status to other drugs, medicaments and biological substances
CPT/HCPCS: 45385; 45380; 88305

== ENCOUNTER → 2021-12-27 11:25 | Outpatient (BNVA) | payer OTHER, SELFPAY | PROVIDERS: PCP Internal Medicine; Referring Provider Internal Medicine; Visit Provider Nurse Practitioner Family | DX: D36.9 Benign neoplasm, unspecified site (principal); Z98.890 Other specified postprocedural states | CPT/HCPCS: 99212 ==

== ENCOUNTER 2022-03-22 10:12 | Outpatient (REF) | payer OTHER, SELFPAY ==
[2022-03-22 13:47] LABS: CT PCR NOT DETECTED (Not Detect.); NG PCR NOT DETECTED (Not Detect.)
== END 2022-03-22 10:13 | disposition home or self-care (01) ==
LOC: HO.LAB 10:12
PROVIDERS: Visit Provider Advanced Practice Midwife
DX: Z11.3 Encounter for screening for infections with a predominantly sexual mode of transmission (principal); Z20.2 Contact with and (suspected) exposure to infections with a predominantly sexual mode of transmission
CPT/HCPCS: 87491; 87591

== ENCOUNTER 2022-05-05 08:02 | Outpatient (REF) | payer OTHER, SELFPAY ==
[2022-05-05 08:40] LABS: COVID-19 Test Positive (Negative); IDNOW Serial# 9DB6401D
== END 2022-05-05 08:03 | disposition home or self-care (01) ==
LOC: HO.LAB 08:02
PROVIDERS: Visit Provider Internal Medicine
DX: Z20.822 Contact with and (suspected) exposure to COVID-19 (principal)
CPT/HCPCS: 87635; C9803

== ENCOUNTER 2022-08-17 04:40 | Emergency (ER) | payer OTHER, SELFPAY ==
[2022-08-17 04:43] VITALS: BP 108/55; PULSE 99; RESP 18; TEMP 36.7; O2SAT 99; BMI 23.1
[2022-08-17 05:03] LABS: MANUAL DIFF FLAG NO
[2022-08-17 05:04] LABS: Basophils Percent Auto 0.3 % (0-2); Eosinophils Absolute Auto 0.1 X10*3/uL (0.0-0.4); Eosinophils Percent Auto 1.4 % (0-4); Hematocrit 35.5 % (37.0-47.0); Imm Gran Abs Auto 0.02 X10*3/uL (0.00-0.03); Imm Gran Pct Auto 0.3 % (0.0-0.4); Lymphocytes Absolute Auto 1.5 X10*3/uL (1.2-4.9); Lymphocytes Percent Auto 23.4 % (20-40); Mean Corpuscular HGB Conc 33.8 g/dl (31.0-35.0); Mean Corpuscular Hemoglobin 30.2 pg (27.0-33.0); Mean Corpuscular Volume 89.4 fL (80.0-98.0); Mean Platelet Volume 9.6 fL (9.4-12.3); Monocytes Absolute Auto 0.6 X10*3/uL (0.1-1.2); Neutrophils Absolute Auto 4.2 x10*3/uL (2.0-8.3); Neutrophils Percent Auto 65.6 % (45-73); Platelet Count 259 X10*3/uL (160-400); Red Blood Count 3.97 X10*6/uL (4.20-5.50); Red Cell Distribution Width 12.7 % (11.0-16.0); White Blood Count 6.4 X10*3/uL (4.8-10.8)
[2022-08-17 05:41] LABS: Influenza A PCR POSITIVE (Negative); Influenza B PCR NEGATIVE (Negative); Resp Syncy Virus RNA Qual PCR NEGATIVE (Negative); SARS COV2 PCR INHOUSE NEGATIVE (Negative)
[2022-08-17 05:48] LABS: Alanine Aminotransferase 18 U/L (0-31); Albumin Level 4.3 g/dL (3.5-5.0); Alkaline Phosphatase 85 U/L (39-117); Anion Gap 13 (12-20); Aspartate Amino Transferase 22 U/L (5-31); Bilirubin Direct 0.2 mg/dL (0.0-0.5); Bilirubin Total 0.6 mg/dL (0.0-1.0); Blood Urea Nitrogen 10 mg/dL (9-16); Calcium 9.2 mg/dL (8.4-10.2); Carbon Dioxide 27 mmol/L (22-29); Chloride 102 mmol/L (96-108); Creatinine Clr Calc Pharmacy 84.4; Estimated Glomerular Filt Rate > 60; Glucose Random 115 mg/dL (60-115); Lipase 28 U/L (8-78); Potassium 3.5 mmol/L (3.3-5.1); Sodium 138 mmol/L (135-145); Total Protein 7.4 g/dL (6.5-8.0)
--- NOTE | 2022-08-17 08:04 | ED.GENADULT ---
HPI - General Adult General Chief complaint: Abdominal Pain Stated complaint: headache, stomach pain Time Seen by Provider: 08/17/22 07:49 Source: patient Mode of arrival: ambulatory History of Present Illness HPI narrative: 56-year-old female comes in with body aches, abdominal discomfort, cough, sore throat, subjective fevers and denies having received her flu vaccine. Related Data Previous Rx's Medication Instructions Recorded zolpidem 5 mg tablet 5 mg PO BEDTIME PRN sleep 30 days 02/24/22 #30 tabs ondansetron HCl 4 mg tablet 4 mg PO Q8H PRN nausea and 08/17/22 vomiting #10 tabs oseltamivir 75 mg capsule (Tamiflu) 75 mg PO Q12H 5 days #10 caps 08/17/22 Allergies Allergy/AdvReac Type Severity Reaction Status Date / Time ibuprofen [From Motrin] Allergy Intermediate Hives,lip Verified 06/01/22 10:27 swelling Review of Systems Review of Systems: Pertinent positives and negatives as stated in HPI 10 point review of systems otherwise negative. [facility] Past Medical History Source: nursing notes reviewed Medical History GERD (gastroesophageal reflux disease) Hypovitaminosis D Left arm pain Neck pain Pectus excavatum Personal history of COVID-19 Pure hypercholesterolemia Skin lesion Tubular adenoma Surgical History H/O bariatric surgery History of section Hx of colonoscopy Family History Family History Father Diabetes Hypertension Mother Diabetes Hypertension Maternal Grandfather Cancer Maternal Aunt Stomach cancer Social History Social History Housing: House Are you a primary care transition mgr to a significant other at home: Yes Alcohol intake: never Patient Tobacco Use Status: Never used Tobacco e-Cigarette/Vaping Use: Never Used Second Hand Smoke Exposure: No Advance Directives: No Advance Directives Information Provided: No service: No Current occupational status: employed 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 GENERAL: Well developed, well nourished, in no acute distress. HEAD: Normocephalic/atraumatic EYES: PERRLA, EOMI EARS: Ext canals without abnormality, TMs non-bulging and non-erythematous NOSE: Nares patent bilateral OROPHARYNX: no oral lesions noted, posterior pharynx clear and non-erythematous without noted tonsillar enlargement/erythema/exudates NECK: Supple, no adenopathy LUNGS: Normal breath sounds, no tachypnea. No adventitious sounds or accessory muscle use. SpO2<99> CARDIOVASCULAR: Regular rate and rhythm without noted murmurs ABDOMEN: Soft, non-tender, non-distended with bowel sounds. MUSCULOSKELETAL: No tenderness, deformities, or effusions noted on gross inspection. EXTREMITIES: No cyanosis, clubbing or edema. SKIN: Inspection of the skin reveals no rashes NEUROLOGIC: Alert and oriented x 4. Strength and sensation to light touch were grossly intact x 4. Course Course Course Narrative: 56-year-old female with history and clinical presentation after review of all investigations consistent with viral syndrome secondary to influenza A. Patient will receive a script for Tamiflu as well as antinausea medication and was instructed to rehydrate an use [id number] analgesics for control of her symptoms. Medical Decision Making Lab Data Result Diagrams: 08/17/22 04:56 08/17/22 04:56 Labs: Lab Results 08/17/22 08/17/22 08/17/22 Range/Units 04:56 04:56 04:56 WBC 6.4 (4.8-10.8) X10*3/uL RBC 3.97 L (4.20-5.50) X10*6/uL Hgb 12.0 (12.0-16.0) g/dl Hct 35.5 L (37.0-47.0) % MCV 89.4 (80.0-98.0) fL MCH 30.2 (27.0-33.0) pg MCHC 33.8 (31.0-35.0) g/dl RDW 12.7 (11.0-16.0) % Plt Count 259 (160-400) X10*3/uL MPV 9.6 (9.4-12.3) fL Immature Gran % (Auto) 0.3 (0.0-0.4) % Neut % (Auto) 65.6 (45-73) % Lymph % (Auto) 23.4 (20-40) % [place] % (Auto) 9.0 (2-11) % Eos % (Auto) 1.4 (0-4) % Baso % (Auto) 0.3 (0-2) % Lymph # (Auto) 1.5 (1.2-4.9) X10*3/uL [place] # (Auto) 0.6 (0.1-1.2) X10*3/uL Eos # (Auto) 0.1 (0.0-0.4) X10*3/uL Baso # (Auto) 0.0 (0.0-0.2) X10*3/uL Abs Immat Gran (auto) 0.02 (0.00-0.03) X10*3/uL Absolute Neuts (auto) 4.2 (2.0-8.3) x10*3/uL Absolute Nucleated RBC 0.000 (0.0-0.012) X10*3/uL Nucleated RBC % (auto) 0.0 (0.0-0.2) /100WBC Sodium 138 (135-145) mmol/L Potassium 3.5 (3.3-5.1) mmol/L Chloride 102 (96-108) mmol/L Carbon Dioxide 27 (22-29) mmol/L Anion Gap 13 (12-20) BUN 10 (9-16) mg/dL Creatinine 0.65 (0.5-1.4) mg/dL Estim Creat Clear Calc 84.4 Estimated GFR > 60 Random Glucose 115 (60-115) mg/dL Calcium 9.2 (8.4-10.2) mg/dL Total Bilirubin 0.6 (0.0-1.0) mg/dL Direct Bilirubin 0.2 (0.0-0.5) mg/dL AST 22 (5-31) U/L ALT 18 (0-31) U/L Alkaline Phosphatase 85 (39-117) U/L Total Protein 7.4 (6.5-8.0) g/dL Albumin 4.3 (3.5-5.0) g/dL Lipase 28 (8-78) U/L Influenza Type A (PCR) POSITIVE A (Negative) Influenza Type B (PCR) NEGATIVE (Negative) RSV RNA Qual (PCR) NEGATIVE (Negative) SARS-CoV-2 RNA (RT-PCR) NEGATIVE (Negative) Discharge Plan Discharge Clinical Impression: Viral syndrome, Influenza A Patient Disposition: Home, Self-Care Instructions: Influenza (ED), Viral Syndrome (ED) Additional Instructions: 1. Drink plenty of water and use Tylenol/ibuprofen for body aches, temperatures greater than 100.4, headaches. 2. Complete the entire course virus medication. Return to the ER for worsening symptoms. Prescriptions: New oseltamivir [Tamiflu] 75 mg capsule 75 mg PO Q12H 5 Days Qty: 10 0RF ondansetron HCl 4 mg tablet 4 mg PO Q8H PRN (Reason: nausea and vomiting) Qty: 10 0RF No Action zolpidem 5 mg tablet 5 mg PO BEDTIME PRN (Reason: sleep) 30 Days Qty: 30 0RF Referrals: Vanessa Puri MD [Primary Care Provider] - Stand Alone Forms: Work/School Release Print Language: Montserrat[place]
[2022-08-17] MEDS: Acetaminophen 325 MG TABLET 975 MG PO (08:15)
== END 2022-08-17 08:32 | disposition home or self-care (01) ==
PROVIDERS: Emergency Provider Student in an Organized Health Care Education/Training Program; PCP Internal Medicine
DX: J11.1 Influenza due to unidentified influenza virus with other respiratory manifestations (principal); B34.9 Viral infection, unspecified; E78.00 Pure hypercholesterolemia, unspecified; Z79.899 Other long term (current) drug therapy; Z20.822 Contact with and (suspected) exposure to COVID-19
CPT/HCPCS: 0241U; 36415; 80053; 82248; 83690; 85025; 99283

== ENCOUNTER 2022-10-05 11:47 | Outpatient (REF) | payer OTHER, SELFPAY ==
[2022-10-05 12:20] LABS: COVID-19 Test Negative (Negative); IDNOW Serial# 16C4AD1C
== END 2022-10-05 11:48 | disposition home or self-care (01) ==
LOC: HO.LAB 11:47
PROVIDERS: Visit Provider Internal Medicine
DX: Z20.822 Contact with and (suspected) exposure to COVID-19 (principal)
CPT/HCPCS: 87635; C9803

== ENCOUNTER 2023-01-08 22:41 | Emergency (ER) | payer OTHER, SELFPAY ==
[2023-01-08 23:23] VITALS: BP 102/49; PULSE 80; RESP 18; TEMP 36.5; O2SAT 97; BMI 24.3
[2023-01-09 06:14] VITALS: BP 109/60; PULSE 79; RESP 16; TEMP 37; O2SAT 96
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
== END 2023-01-09 07:39 | disposition home or self-care (01) ==
PROVIDERS: Emergency Provider Emergency Medicine Emergency Medical Services; PCP Internal Medicine
DX: S16.1XXA Strain of muscle, fascia and tendon at neck level, initial encounter (principal); M54.2 Cervicalgia; V43.52XA Car driver injured in collision with other type car in traffic accident, initial encounter; Y93.9 Activity, unspecified; Y92.410 Unspecified street and highway as the place of occurrence of the external cause; Y99.9 Unspecified external cause status
CPT/HCPCS: 99283

== ENCOUNTER 2023-03-01 11:26 | Outpatient (REF) | payer OTHER, SELFPAY ==
--- NOTE | ~2023-03-01 | MM_ITS ---
EXAMINATION: MM SCREENING DIGITAL BREAST TOMOSYNTHESIS, BILATERAL CLINICAL INFORMATION: Screening. Asymptomatic. The lifetime risk of breast cancer based on the Tyrer-Cuzick Model is 10%. COMPARISON: Mammography: This study is compared to prior exams dating back to 2018. TECHNIQUE: Digital breast tomosynthesis is performed in both the craniocaudal and mediolateral oblique views along with computer-aided detection (CAD). Synthesized 2D images are generated from the tomosynthesis. FINDINGS: There are scattered areas of fibroglandular density (ACR BI-RADS breast composition Category b). There are no significant masses, abnormal calcifications, or other abnormalities. MM/MM tomosynthesis screening BI IMPRESSION: No mammographic evidence of malignancy. ASSESSMENT: BI-RADS BI-RADS 1 - Negative RECOMMENDATION: Routine annual mammography screening. 1 year F/U This patient's information was entered into a reminder system with a target due date for their next mammogram.
== END 2023-03-01 11:27 | disposition home or self-care (01) ==
LOC: HO.MAMMO 11:26
PROVIDERS: PCP Internal Medicine; Visit Provider Internal Medicine
DX: Z12.31 Encounter for screening mammogram for malignant neoplasm of breast (principal)
CPT/HCPCS: 77063; 77067

== ENCOUNTER → 2023-03-01 11:30 | Outpatient (BNV) | payer OTHER, SELFPAY | PROVIDERS: PCP Internal Medicine; Visit Provider Radiology Diagnostic Radiology | DX: Z12.31 Encounter for screening mammogram for malignant neoplasm of breast (principal) | CPT/HCPCS: 77063; 77067 ==

== ENCOUNTER 2023-06-30 11:33 | Outpatient (AMB) | payer OTHER, SELFPAY ==
--- NOTE | 2023-06-30 11:34 | AM.OFFWIN_ITS ---
Intake Vital Signs 06/30/23 11:40 Height 5 ft 3 in Weight 143 lb 8 oz BMI 25.4 BP 122/78 Blood Pressure Location Lt brachial Position Sitting Pulse 69 Pulse Source Pulse Oximeter Temp 97.8 F Temp Source Temporal Artery Scan Pulse Oximetry (%) 98 Oxygen Delivery Method Room Air Intake Visit Reasons: rig Intake Note: pt is here for c/o right eye redness, possible sty Patient Tobacco Use Status: Never used Tobacco Allergies ibuprofen [From Motrin] Allergy (Intermediate, Verified 06/30/23 11:35) Hives,lip swelling Do you need a note to return to daycare/school/sports/work: Yes HPI HPI Comments History of Present Illness Details This is a 57-year-old female who presents to the office today for sick visit. Patient complaining of right lower eyelid swelling, pain, and redness for the past several days. She denies any visual disturbances. She denies any fevers or chills. She is otherwise feeling well. [facility] Medical History GERD (gastroesophageal reflux disease) Hypovitaminosis D Left arm pain Neck pain Pectus excavatum Personal history of COVID-19 Pure hypercholesterolemia Skin lesion Tubular adenoma Surgical History H/O bariatric surgery History of section Hx of colonoscopy Family History Father Diabetes Hypertension Mother Diabetes Hypertension Maternal Grandfather Cancer Maternal Aunt Stomach cancer Social History Housing: House Are you a primary healthcare corporate account director to a significant other at home: Yes Alcohol intake: never Patient Tobacco Use Status: Never used Tobacco e-Cigarette/Vaping Use: Never Used Second Hand Smoke Exposure: No service: No Current occupational status: employed 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 Current occupational exposures/hazards: No Cognitive needs: No Hearing needs: No Vision needs: No Review of Systems Const All systems reviewed & are unremarkable except as noted in HPI and below Reports no additional complaints Eyes Reports no additional complaints ENT Reports no additional complaints Card Reports no additional complaints Resp Reports no additional complaints GI Reports no additional complaints Reports no additional complaints Musc Reports no additional complaints Skin/Breast Reports system reviewed and no additional complaints, except as documented Neuro Reports no additional complaints Psych Reports no additional complaints Endo Reports no additional complaints Arnoldo/Lymph Reports no additional complaints Aller/Immun Reports no additional complaints Physical Exam Const Other: Vital signs reviewed. Constitutional: Non-toxic appearing. No acute distress. Well-developed and well-nourished. HEENT: Normocephalic and atraumatic. Internal hordeolum of the right lower eyelid. No periorbital erythema or edema. No conjunctival injection. Skin: Warm and dry. No rashes or lesions noted. Neck: Full and painless range of motion. No cervical lymphadenopathy. Cardio: Regular rate. No lower extremity edema. No JVD. Pulmonary: No respiratory distress. No accessory muscle usage. Gastrointestinal: Soft, nontender, and nondistended in all 4 quadrants. Musculoskeletal: Normal range of motion in joints throughout the body. No deformity or other signs of injury. Neuro: Alert and oriented x4. Cranial nerves 2-12 grossly intact. No focal deficits appreciated. Psych: Normal mood and affect. Assessment & Plan Assessment & Plan (1) Hordeolum internum right lower eyelid: Code(s): H00.022 - Hordeolum internum right lower eyelid Plan: This is a 57-year-old female presenting to the office complaining of right lower eyelid pain, swelling, and erythema. On physical examination, there is an internal hordeolum of the right lower eyelid. There is no periorbital edema or erythema to suggest preseptal cellulitis. Patient denies any visual disturbances. Her vital signs are stable, her physical exam is otherwise benign, and she is overall nontoxic appearing. History and physical most consistent with internal hordeolum. Patient sent home on erythromycin ophthalmic ointment 4 times daily. Recommend symptomatic management including warm/cool compresses and PO acetaminophen/ibuprofen as needed for discomfort. Patient advised to follow-up here or proceed to the emergency room if she were to develop persistent/worsening symptoms including visual changes. Patient verbalizes her understanding and she is in agreement with the plan. Medications: New erythromycin 0.5 inches ophthalmic (eye) QID 3.5 grams 0RF Coding Level of Care Code Est Pt Level 3 (22242) Diagnoses Hordeolum internum right lower eyelid H00.022
[2023-06-30 11:40] VITALS: BP 122/78; PULSE 69; TEMP 36.6; O2SAT 98; BMI 25.4
== END 2023-06-30 11:55 | disposition home or self-care (01) ==
PROVIDERS: PCP Internal Medicine; Visit Provider Physician Assistant Medical
DX: H00.022 Hordeolum internum right lower eyelid (principal)
CPT/HCPCS: 99213

== ENCOUNTER 2023-11-27 17:08 | Outpatient (AMB) | payer OTHER, SELFPAY ==
[2023-11-27 17:11] VITALS: BP 112/72; BMI 26.0
--- NOTE | 2023-11-27 17:11 | A.OFFPC_ITS ---
Vital Signs 11/27/23 17:11 Height 5 ft 3 in Weight 147 lb BMI 26.0 BP 112/72 Blood Pressure Location Lt brachial Position Sitting Intake Visit Reasons: follow up appt Intake Note: Patient here for a follow up, c/o dry hands, anxiety, dermatology referral request Faucets Assembler Required: No Accompanied by: Self / Same As Patient Allergies ibuprofen [From Motrin] Allergy (Intermediate, Verified 11/27/23 17:23) Hives,lip swelling Medication List - Last Reconciled 11/27/23 by Vanessa Hilario MD acetaminophen ER (Tylenol Arthritis Pain) 650 mg PO Q8H PRN cyclobenzaprine 10 mg PO TID PRN zolpidem 5 mg PO BEDTIME PRN 30 days Tobacco use date assessed: 11/27/23 Dental Screening Dental Screen Date: 11/27/23 Did you have a dental visit in the last 12 months?: Yes Did you have a dental problem in the last 6 months where you did not have access to dental care?: No Was dental information given to patient?: Patient has dentist HPI HPI Comments History of Present Illness Details This is a 57-year-old female with anxiety, insomnia, skin lesion and low vitamin-D that comes today for follow-up on her conditions. She is complaining of having more anxiety and having to eat. I will start her on buspirone. Has insomnia stable with Ambien as needed. Has dry skin only in the right hand and will be referred to Dermatology. [facility] Medical History (Updated 11/27/23 @ 17:31 by Vanessa Hilario MD) Tubular adenoma Hypovitaminosis D Personal history of COVID-19 Left arm pain Neck pain Pure hypercholesterolemia Skin lesion Pectus excavatum GERD (gastroesophageal reflux disease) Surgical History Hx of colonoscopy H/O bariatric surgery History of section Family History Father Diabetes Hypertension Mother Diabetes Hypertension Maternal Grandfather Cancer Maternal Aunt Stomach cancer Social History Housing: House Are you a primary healthcare advisory services manager to a significant other at home: Yes Alcohol intake: never Patient Tobacco Use Status: Never used Tobacco e-Cigarette/Vaping Use: Never Used Second Hand Smoke Exposure: No service: No Current occupational status: employed 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 1. Little interest or pleasure in doing things: not at all 2. Feeling down, depressed, or hopeless: several days 3. Trouble falling or staying asleep, or sleeping too much: more than half the days 4. Feeling tired or having little energy: several days 5. Poor appetite or overeating: more than half the days 6. Feeling bad about yourself - or that you are a failure or have let yourself or your family down: not at all 7. Trouble concentrating on things, such as reading the newspaper or watching television: not at all 8. Moving or speaking so slowly that other people could have noticed. Or the opposite - being so fidgety or restless that you have been moving around a lot more than usual: not at all 9. Thoughts that you would be better off or of hurting yourself in some way: not at all Total score: 6 Depression Screening Interpretation: Positive Depression Screening Follow-up: Existing condition Depression Screening Done: Yes 17436 - PHQ-9 Billing: Yes Source: Developed by Drs. Suresh Terrazas, Audrey Canada, Neal Sterling and colleagues, with an educational nader from [employer]. Thrive Questionnaire Date Thrive assessed: 11/27/23 I am a: Patient What is your living situation today?: I have a steady place to live Within the past 12 months, did the food you bought not last and you didn't have the money to get more?: Never true Within the past 12 months, did you worry whether your food would run out before you got money to buy more?: Never true Do you have trouble paying for medicines?: No Do you have trouble getting transportation to medical appointments?: No Do you have trouble paying your heating and electricity bill?: No Do you have trouble taking care of your child, family member or friend?: No Do you have trouble with day-to-day activities such as bathing, preparing meals, shopping, managing finances, etc.?: No Are you currently unemployed and looking for a job?: No Are you interested in more education?: No Please select the resources that you would like help with: None Currently or been in a relationship where the following occur: no concerns reported THRIVE Score: 0 AUDIT C Alcohol Use Questionnaire (AUDIT-C) 1. How often do you have a drink containing alcohol?: Never Total Score: 0 AHSAN-7 AMB Questionnaire AHSAN-7 Date AHSAN - 7 assessed: 11/27/23 Feeling nervous, anxious, or on edge: 3 = Nearly every day Not being able to stop or control worryin = Not at all Worrying too much about different things: 1 = Several days Trouble relaxin = Not at all Being so restless that it is hard to sit still: 0 = Not at all Becoming easily annoyed or irritable: 0 = Not at all Feeling afraid as if something awful might happen: 0 = Not at all Total AHSAN-7 score (0-4 normal; 5-9 mild; 10-14 moderate; 15-21 severe): 4 Source: Developed by Drs. Suresh Terrazas, Audrey Canada, Neal Sterling and colleagues, with an educational nader from [employer]. AHSAN-7 Assessment Billing AHSAN-7 Assessment Tool: AHSAN-7 Assessment 83737 Review of Systems Const All systems reviewed & are unremarkable except as noted in HPI and below Eyes Reports no additional complaints, Denies change in vision and Denies other visual disturbances Card Denies chest pain at rest, Denies chest pain with activity, Denies edema, Denies irregular heart rhythm, Denies claudication, Denies dyspnea, Denies dyspnea on exertion, Denies orthopnea, Denies paroxysmal nocturnal dyspnea and Denies slow heart rate Resp Denies cough, Denies dyspnea and Denies dyspnea on exertion GI Denies abdominal pain, Denies change in bowel habits, Denies excessive flatus, Denies nausea and Denies vomiting Denies urinary incontinence, Denies urinary hesitancy and Denies urinary urgency Musc Denies abnormal gait, Denies atrophy, Denies deformity and Denies limited range of motion Skin/Breast Denies bleeding lesions, Denies changing lesions and Denies rash Neuro Denies abnormal gait, Denies behavioral changes and Denies lack of coordination Psych Denies behavioral changes Physical exam (Primary Care) Vital Signs: Last Vital Signs BP 112/72 11/27/23 17:11 BMI result Body Mass Index 26.0 Tobacco/Smoking Status: Tobacco use Status Tobacco use date assessed 11/27/23 11/27/23 17:18 Patient Tobacco Use Status Never used Tobacco 11/27/23 17:18 e-Cigarette/Vaping Use Never Used 11/27/23 17:18 PHQ-9: PHQ-9 Score PHQ-9: Total score 6 11/27/23 17:25 Depression Screening Interpretation: Positive Depression Screening Follow-up: Existing condition Thrive Assessment: Date of Thrive Assessment Date Thrive assessed 11/27/23 11/27/23 17:18 Currently or been in a relationship where the following occur: no concerns reported Resp Effort & Inspection: normal respiratory effort Auscultation: clear to auscultation bilaterally Cardio Jugular venous distension: no JVD Rate: regular rate Rhythm: regular rhythm Heart sounds: S1 normal heart sound present and S2 normal heart sound present Assessment and Plan Assessment & Plan (1) Anxiety: Code(s): F41.9 - Anxiety disorder, unspecified Plan: Start buspirone. (2) Skin lesion: Code(s): L98.9 - Disorder of the skin and subcutaneous tissue, unspecified Plan: Referred to dermatology. (3) Insomnia: Code(s): G47.00 - Insomnia, unspecified Plan: Continue Ambien as needed. Orders: Referrals Dermatology Referral L98.9 - Disorder of the skin and subcutaneous tissue, unspecified Medications: New buspirone 7.5 mg PO BID 30 days 60 tabs 0RF F41.9 - Anxiety disorder, unspecified Refilled zolpidem 5 mg PO BEDTIME 30 days PRN 30 tabs 0RF sleep G47.00 - Insomnia, unspecified Coding Level of Care Code Est Pt Level 3 (03407) Diagnoses Anxiety F41.9 Skin lesion L98.9 Insomnia G47.00 Additional Codes AHSAN-7 Assessment Billing - AHSAN-7 Assessment Tool: AHSAN-7 Assessment 16841 ([id number]) Time Spent (min) 19
== END 2023-11-27 17:34 | disposition home or self-care (01) ==
PROVIDERS: PCP Internal Medicine; Visit Provider Internal Medicine
DX: G47.00 Insomnia, unspecified (principal); F41.9 Anxiety disorder, unspecified; L98.9 Disorder of the skin and subcutaneous tissue, unspecified
CPT/HCPCS: 99213

== ENCOUNTER 2024-03-06 08:18 | Outpatient (REF) | payer OTHER, SELFPAY | END 2024-03-06 08:19 | disposition home or self-care (01) | LOC: HO.MAMMO 08:18 | PROVIDERS: PCP Internal Medicine; Visit Provider Internal Medicine | DX: Z12.31 Encounter for screening mammogram for malignant neoplasm of breast (principal) | CPT/HCPCS: 77063; 77067 ==

== ENCOUNTER → 2024-03-06 08:30 | Outpatient (BNV) | payer OTHER, SELFPAY | PROVIDERS: PCP Internal Medicine; Visit Provider Radiology Diagnostic Radiology | DX: Z12.31 Encounter for screening mammogram for malignant neoplasm of breast (principal) | CPT/HCPCS: 77063; 77067 ==

== ENCOUNTER 2024-11-13 13:43 | Emergency (ER) | payer OTHER, SELFPAY ==
--- NOTE | ~2024-11-13 | CT_ITS ---
EXAMINATION: CT HEAD WITHOUT IV CONTRAST HISTORY: pain. TECHNIQUE: Unenhanced helical CT of the head was performed per standard departmental protocol. Coronal and sagittal reformats of the head were also evaluated. One or more of the following techniques was used for dose reduction: Automated exposure control, adjustment of the mA and/or kV according to patient size, use of iterative reconstruction technique. DLP: 676.05 mGy-cm COMPARISON: There are no prior studies for comparison. FINDINGS: BRAIN: The brain parenchyma is unremarkable. There is normal solis/white differentiation. The ventricular system is normal in size and configuration. There is no mass effect or midline shift. No intra- or extra-axial fluid collections are identified. SINUSES: There is mucosal thickening in the frontal and sphenoid sinuses. The mastoid air cells and middle ear cavities are well pneumatized. ORBITS: The visualized orbits are unremarkable. BONES/SOFT TISSUES: The extracranial soft tissues are unremarkable. The calvarium is intact. No suspicious lytic or sclerotic lesions. CT/CT head/brain wo IV con IMPRESSION: Unremarkable unenhanced head CT. Electronically signed by: Suresh Lim MD 11/13/2024 03:09 PM EDT
--- NOTE | ~2024-11-13 | CT_ITS ---
EXAMINATION: CT CERVICAL SPINE WITHOUT IV CONTRAST HISTORY: pain. TECHNIQUE: Helical CT of the cervical spine was performed per standard departmental protocol. Coronal and sagittal reformatted images were also evaluated. One or more of the following techniques was used for dose reduction: Automated exposure control, adjustment of the mA and/or kV according to patient size, use of iterative reconstruction technique. DLP: 305.71 mGy-cm COMPARISON: There are no prior studies for comparison. FINDINGS: CERVICAL SPINE: Osseous mineralization is normal. There is straightening of the normal cervical lordosis. The vertebral bodies maintain normal height without evidence of fracture or subluxation. There is mild degenerative disc disease with disc space narrowing and osteophyte formation. Evaluation for disc pathology is limited by lack of intrathecal contrast material. BRAIN: The visualized portion of the brain is unremarkable. SINUSES: There is mucosal thickening in the sphenoid sinuses. The visualized mastoid air cells and middle ear cavities are unremarkable. LUNG APICES: The visualized lung apices are clear. SOFT TISSUES: There is an aberrant right subclavian artery. CT/CT cervical spine wo IV con IMPRESSION: Screening of the normal cervical lordosis. No evidence of fracture or subluxation of the cervical spine. Electronically signed by: Suresh Lim MD 11/13/2024 03:05 PM EDT
[2024-11-13 14:08] VITALS: BP 118/70; PULSE 79; RESP 19; TEMP 36.6; O2SAT 98; BMI 25.7
--- NOTE | 2024-11-13 14:08 | ED_ITS ---
HPI - General Adult General Chief complaint: Headache Stated complaint: Neck and Head Pain No Injury Time Seen by Provider: 11/13/24 16:15 Source: patient, family, RN notes reviewed, old records reviewed and paraprofessional interpreter Mode of arrival: ambulatory Limitations: language barrier History of Present Illness ED Provider: Tana HPI narrative: 58-year-old female presents for evaluation of right-sided neck pain for the last 5 days. She denies any specific injury. She reports the pain is causing a headache on the right side of her head She feels a stiffness in her neck and her pain is worse with turning her head to the side. Denies any fevers, chills respiratory symptoms. Related Data Previous Rx's ?Medication ?Instructions ?Recorded acetaminophen 650 mg 650 mg PO Q8H PRN pain #30 tabs 01/09/23 tablet,extended release (Tylenol Arthritis Pain) cyclobenzaprine 10 mg tablet 10 mg PO TID PRN muscle spasm #14 01/09/23 tabs buspirone 7.5 mg tablet 7.5 mg PO BID 30 days #60 tabs 11/27/23 zolpidem 5 mg tablet 5 mg PO BEDTIME PRN sleep 30 days 11/27/23 #30 tabs cyclobenzaprine 10 mg tablet 10 mg PO TID PRN muscle spasm #20 11/13/24 tabs tramadol 50 mg tablet 50 mg PO Q8H PRN severe pain 11/13/24 (scale score 7-10) #12 tabs Allergies Allergy/AdvReac Type Severity Reaction Status Date / Time ibuprofen [From Motrin] Allergy Intermediate Hives,lip Verified 11/13/24 14:09 swelling Review of Systems Constitutional: Constitutional: Denies body ache(s), Denies chills, Denies fever(s) and Reports headache(s) ENT: Reports headache(s) and Reports neck pain Cardiovascular: Cardiovascular: Denies chest pain and Denies dyspnea Respiratory: Respiratory: Denies cough and Denies dyspnea Gastrointestinal: Gastrointestinal: Denies abdominal pain, Denies nausea and Denies vomiting Musculoskeletal: Musculoskeletal: Reports neck pain, Denies numbness, Denies radiating pain into limb and Reports stiffness Neurologic: Reports headache(s) and Denies numbness PMFSH Past Medical History Medical History GERD (gastroesophageal reflux disease) Hypovitaminosis D Left arm pain Neck pain Pectus excavatum Personal history of COVID-19 Pure hypercholesterolemia Skin lesion Tubular adenoma Surgical History Hx of colonoscopy H/O bariatric surgery History of section Family History Family History Father Diabetes Hypertension Mother Diabetes Hypertension Maternal Grandfather Cancer Maternal Aunt Stomach cancer Social History Social History Housing: House Are you a primary career resource technician to a significant other at home: Yes Alcohol intake: never Patient Tobacco Use Status: Never used Tobacco e-Cigarette/Vaping Use: Never Used Second Hand Smoke Exposure: No Advance Directives: No Advance Directives Information Provided: No Do you have a plan to hurt others: No Plan service: No Current occupational status: employed 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 Current occupational exposures/hazards: No Cognitive needs: No Hearing needs: No Vision needs: No Physical Exam ED Vital Signs: Vital Signs - 24 hr 11/13/24 14:08 Temperature 98 F Pulse Rate 79 Respiratory Rate 19 Blood Pressure 118/70 Pulse Oximetry 98 BMI result Body Mass Index 25.7 Const General: healthy appearing, comfortable, no acute distress, alert and awake Nutritional Appearance: well nourished Orientation/consciousness: patient oriented x3 HENMT Head: Yes normocephalic and Yes atraumatic Eyes Eyelids: Yes eyelids normal Conjunctivae: conjunctivae normal Sclerae: sclerae normal Corneas: corneas normal Pupils: Equal, round and reactive pupils present EOM: EOMs intact bilaterally Neck Neck: Yes full ROM Resp Effort & Inspection: normal respiratory effort, able to speak in complete se ntences and not labored Back/Spine/Pelvis Other: Tenderness in the right trapezius muscle group Cervical Spine: cervical spasm (Right-sided cervical tenderness) and No Cervical spine tenderness Skin General skin exam: elasticity normal Neuro General: patient oriented x3 Cranial nerves: Yes CN's II-XII intact bilaterally, Yes Equal, round and reactive pupils present and Yes Bilaterally intact EOM present Cognition (Neuro): normal cognition Motor exam (neuro): 5/5 motor strength present throughout Extrem Other: Moving all extremities well without any obvious deformities Course Course Course Narrative: RME, this is a rapid medical exam performed by Estuardo Fajardo please refer to primary provider for complete H&P- 58 year old female presents for evaluation posterior headache and neck pain. She reports that the symptoms started 3 days ago. Denies any injury. No neuro defecits. Denies any history of headaches Medical Decision Making Medical Decision Making MDM Narrative: 58-year-old female presents for evaluation of neck pain and headache. Her history and exam is most consistent with cervical strain and tension headache. She has no fevers, chills, viral symptoms. No evidence of infectious cause. She was afebrile. no Meningeal signs. CT of the head and cervical spine did not show any traumatic injuries. She does have straightening of the cervical spine consistent muscle spasms. We will treat with tramadol and cyclobenzaprine as she was an allergy to ibuprofen reports Tylenol has not been helping Differential Diagnosis Differential Diagnoses: The differential diagnosis associated with the presentation includes Muscle strain Tension headache Cervical strain Intracranial hemorrhage Cervical fracture Radiology Impression Discussion of test interpretation with radiology: I have reviewed the radiologist's reading. Radiologist Impression: FINDINGS: BRAIN: The brain parenchyma is unremarkable. There is normal solis/white differentiation. The ventricular system is normal in size and configuration. There is no mass effect or midline shift. No intra- or extra-axial fluid collections are identified. SINUSES: There is mucosal thickening in the frontal and sphenoid sinuses. The mastoid air cells and middle ear cavities are well pneumatized. ORBITS: The visualized orbits are unremarkable. BONES/SOFT TISSUES: The extracranial soft tissues are unremarkable. The calvarium is intact. No suspicious lytic or sclerotic lesions. CT/CT head/brain wo IV con IMPRESSION: Unremarkable unenhanced head CT. FINDINGS: CERVICAL SPINE: Osseous mineralization is normal. There is straightening of the normal cervical lordosis. The vertebral bodies maintain normal height without evidence of fracture or subluxation. There is mild degenerative disc disease with disc space narrowing and osteophyte formation. Evaluation for disc pathology is limited by lack of intrathecal contrast material. BRAIN: The visualized portion of the brain is unremarkable. SINUSES: There is mucosal thickening in the sphenoid sinuses. The visualized mastoid air cells and middle ear cavities are unremarkable. LUNG APICES: The visualized lung apices are clear. SOFT TISSUES: There is an aberrant right subclavian artery. CT/CT cervical spine wo IV con IMPRESSION: Screening of the normal cervical lordosis. No evidence of fracture or subluxation of the cervical spine. Electronically signed by: Suresh Lim MD 11/13/2024 03:05 PM EDT Discharge Plan Discharge Clinical Impression: Neck pain, Acute tension headache Patient Disposition: Home, Self-Care Instructions: Tension Headache (ED) Additional Instructions: CT scans showed findings consistent with muscle spasms in you likely have a tension headache. Use Tylenol as needed for pain. You may use tramadol and cyclobenzaprine as needed for the pain pain These medications may make you drowsy, do not drink alcohol or drive after taking it You may also use warm compresses. Follow-up with your primary doctor, return for new or worsening symptoms Prescriptions: New cyclobenzaprine 10 mg tablet 10 mg PO TID PRN (Reason: muscle spasm) Qty: 20 0RF tramadol 50 mg tablet 50 mg PO Q8H PRN (Reason: severe pain (scale score 7-10)) Qty: 12 0RF No Action cyclobenzaprine 10 mg tablet 10 mg PO TID PRN (Reason: muscle spasm) Qty: 14 0RF acetaminophen [Tylenol Arthritis Pain] 650 mg tablet extended release 650 mg PO Q8H PRN (Reason: pain) Qty: 30 0RF zolpidem 5 mg tablet 5 mg PO BEDTIME PRN (Reason: sleep) 30 Days Qty: 30 0RF buspirone 7.5 mg tablet 7.5 mg PO BID 30 Days Qty: 60 0RF Stand Alone Forms: Work/School Release Print Language: Sinhala
[2024-11-13 17:43] VITALS: BP 118/70; PULSE 79; RESP 19; TEMP 36.6; O2SAT 98
--- OUTSIDE RECORDS SUMMARY | 2024-11-13 18:35 | XMS_ITS | Clinical Summary ---
Author Organization [facility] ity Address [address] [place] [id number] Care Team Providers Care Building And Grounds Supervisor Name Role Phone Vanessa Hilario MD Primary Care Provider Surgical History Surgery Date Site/Laterality Comments SECTION PROCEDURE: [place] DELIVERY ONLY Family History Medical History Relation Name Comments Diabetes Father Other: heart problems Father Diabetes Mother Other: Other Mother Relation Name Status Comments Father Mother Social History Tobacco Use Types Packs/Day Years Used Date Smoking Tobacco: Never Smokeless Tobacco: Never Alcohol Use Standard Drinks/Week Comments No 0 (1 standard drink = 0.6 oz pur e alcohol) Comments Unknown Sex and Gender Information Value Date Recorded Sex Assigned at Not on file Legal Sex Female 2:58 AM EST Gender Identity Not on file Sexual Orientation Not on file Obstetrics History Plan of Treatment Health Maintenance Due Date Last Done Comments Breast Cancer Screening 1966 DTaP,Tdap,and Td Vaccines (1 - Tdap) 1985 Hepatitis B Vaccines (1 of 3 - 19+ 3-dose series) 1985 Cervical Cancer Screening: P ap Smear 12/07/1987 Pneumococcal Vaccine: 50+ Ye ars (1 of 1 - PCV) 2016 Zoster Vaccines (1 of 2) 2016 COVID-19 Vaccine (2023-2 5 season) 2024 Influenza Vaccine (#1) 2024 HIB Vaccines Aged Out No longer eligi ble based on patient's age to complete this topic HPV Vaccines Aged Out No longer eligi ble based on patient's age to complete this topic Hepatitis A Vaccines Aged Out No long er eligible based on patient's age to complete this topic IPV Vaccines Aged Out No longer eligi ble based on patient's age to complete this topic MMR Vaccines Aged Out No longer eligi ble based on patient's age to complete this topic Meningococcal ACWY Vaccine Aged Out N o longer eligible based on patient's age to complete this topic Meningococcal B Vacine Aged Out No lo nger eligible based on patient's age to complete this topic Pneumococcal Vaccine: Pediat rics (0 to 5 Years) and At-Risk Patients (6 to 64 Years) Aged Out No longer eligible b ased on patient's age to complete this topic RSV Immunization Patients Un terry 20 months Aged Out No longer eligible b ased on patient's age to complete this topic Varicella Vaccines Aged Out No longer eligible based on patient's age to complete this topic Care Teams Building And Grounds Supervisor Relationship Specialty Start Date End Date Vanessa Hilario MD [address] [place] [address] , [address] [facility] D/B/A: [facility] PCP - General Internal Medicine 01/17/19
== END 2024-11-13 17:45 | disposition home or self-care (01) ==
PROVIDERS: Emergency Provider Emergency Medicine Emergency Medical Services; PCP Internal Medicine
DX: M54.2 Cervicalgia (principal); G44.209 Tension-type headache, unspecified, not intractable
CPT/HCPCS: 70450; 72125; 99282; 99284

== ENCOUNTER → 2024-11-13 14:09 | Outpatient (BNV) | payer OTHER, SELFPAY | PROVIDERS: PCP Internal Medicine; Visit Provider Radiology Diagnostic Radiology | DX: M54.2 Cervicalgia (principal); R51.9 Headache, unspecified | CPT/HCPCS: 70450; 72125 ==

== ENCOUNTER 2025-01-28 09:27 | Outpatient (REF) | payer OTHER, SELFPAY ==
[2025-01-28 09:36] LABS: MANUAL DIFF FLAG NO
--- OUTSIDE RECORDS SUMMARY | 2025-01-28 10:01 | XMS_ITS | Clinical Summary ---
Author Organization [facility] ity Address [id number] [place] [id number] Care Team Providers Care Mems Process Engineer Name Role Phone Vanessa Hilario MD Primary Care Provider [phone] Surgical History Surgery Date Site/Laterality Comments SECTION PROCEDURE: [place] DELIVERY ONLY Family History Medical History Relation [...] Vaccine (2023-2 5 season) 2024 Influenza Vaccine (Season Ended) 2025 HIB Vaccines Aged Out No longer eligi [...] age to complete this topic Meningococcal B Vaccine Aged Out No l onger eligible based on patient's age to complete [...] age to complete this topic Care Teams Mems Process Engineer Relationship Specialty Start Date End Date Vanessa Hilario MD [address] [place] [address] , [address] [facility] D[facility]A: [facility] PCP - General Internal Medicine 01/17/19
[2025-01-28 10:15] LABS: Basophils Percent Auto 0.3 % (0-2); Eosinophils Absolute Auto 0.1 X10*3/uL (0.0-0.4); Hematocrit 33.7 % (37.0-47.0); Hemoglobin 11.4 g/dl (12.0-16.0); Imm Gran Abs Auto 0.01 X10*3/uL (0.00-0.03); Imm Gran Pct Auto 0.2 % (0.0-0.4); Lymphocytes Absolute Auto 2.2 X10*3/uL (1.2-4.9); Lymphocytes Percent Auto 36.4 % (20-40); Mean Corpuscular HGB Conc 33.8 g/dl (31.0-35.0); Mean Corpuscular Hemoglobin 30.1 pg (27.0-33.0); Mean Corpuscular Volume 88.9 fL (80.0-98.0); Monocytes Absolute Auto 0.4 X10*3/uL (0.1-1.2); Monocytes Percent Auto 7.1 % (2-11); Neutrophils Absolute Auto 3.4 x10*3/uL (2.0-8.3); Platelet Count 283 X10*3/uL (160-400); Red Blood Count 3.79 X10*6/uL (4.20-5.50); Red Cell Distribution Width 13.2 % (11.0-16.0); White Blood Count 6.2 X10*3/uL (4.8-10.8)
[2025-01-28 11:26] LABS: Alanine Aminotransferase 16 U/L (0-31); Albumin Level 4.3 g/dL (3.5-5.0); Alkaline Phosphatase 80 U/L (39-117); Anion Gap 10 (12-20); Aspartate Amino Transferase 21 U/L (5-31); Bilirubin Total 0.4 mg/dL (0.0-1.0); Blood Urea Nitrogen 17 mg/dL (9-16); Calcium 9.3 mg/dL (8.4-10.2); Carbon Dioxide 28 mmol/L (22-29); Chloride 107 mmol/L (96-108); Cholesterol 233 mg/dL (<200); Estimated Glomerular Filt Rate > 60; Glucose Fasting 87 mg/dL (60-99); HDL Cholesterol 74 mg/dL (>40); LDL Cholesterol Calculated 145 mg/dL (<100); Potassium 3.8 mmol/L (3.3-5.1); Sodium 141 mmol/L (135-145); Total Protein 7.3 g/dL (6.5-8.0); Triglycerides 71 mg/dL (<150); Vitamin D 25-OH Total 22.2 ng/mL (>30)
== END 2025-01-28 09:28 | disposition home or self-care (01) ==
LOC: HO.LAB 09:27
PROVIDERS: PCP Internal Medicine; Visit Provider Internal Medicine
DX: D64.9 Anemia, unspecified (principal); R42 Dizziness and giddiness; E55.9 Vitamin D deficiency, unspecified; E78.5 Hyperlipidemia, unspecified
CPT/HCPCS: 36415; 80053; 80061; 82306; 85025

== ENCOUNTER 2025-07-06 13:33 | Emergency (ER) | payer OTHER, SELFPAY ==
--- NOTE | ~2025-07-06 | XR_ITS ---
CLINICAL HISTORY: twisted pain swelling Radiographs of the left ankle, 3 views Comparison: None available Findings: There is no fracture or dislocation. The ankle mortise is congruent. Mild degenerative change. Calcaneal enthesophytes. Vascular calcifications. Soft tissue calcifications Soft tissue swelling. Impression: No fracture. This document has been electronically signed by: Polly España MD on 07/06/2025 15:14:10
--- NOTE | ~2025-07-06 | US_ITS ---
CLINICAL HISTORY: achilles tendon pain, swelling, r o tear Targeted soft tissue ultrasound Comparison: CR - XR ANKLE LT MIN 3V - 07/06/25 14:14 EST Findings: Grayscale and color Doppler images were obtained of the Achilles tendon with a high-frequency linear transducer. The tendon is intact. The tendon is mildly increased in size and echogenicity, measuring up to 0.6 cm in thickness with a convex appearance. No fluid collection. Impression: No tear of the Achilles tendon. Achilles tendinopathy could be considered. This document has been electronically signed by: Polly España MD on 07/06/2025 19:18:22
[2025-07-06 13:58] VITALS: BP 117/57; PULSE 97; RESP 16; TEMP 36.9; O2SAT 99; BMI 24.6
--- NOTE | 2025-07-06 15:36 | ED_ITS ---
HPI - Extremity Problem General Chief complaint: Extremity Problem Stated complaint: neck and foot pain Time Seen by Provider: 07/06/25 15:34 Source: patient, RN notes reviewed and maintainer plant Mode of arrival: ambulatory Limitations: language barrier History of Present Illness ED Provider: Hannah Evans PA-C HPI Narrative: This is a 59-year-old gabonese speaking female, with no known medical problems, who presents emergency department with concerns of left ankle pain x1 week. Patient states that she accidentally inverted her left ankle 1 week ago. She states that she felt a popping sensation. She states that she has been unable to bear full weight on her left ankle since the injury. Patient reports that she also has had some right-sided neck pain, states that she has a history of this, symptoms feel similar. She states that she has had some chills, and body aches for the last 2 days. Denies any fevers, chest pain, shortness for breath, abdominal pain, nausea, vomiting or diarrhea. Denies blurred vision, double vision. Denies any other complaints or concerns at this time. MD Complaint: extremity pain, extremity swelling and joint swelling Onset (ago): week(s) Pain Consistency: constant Location: left and lower extremity Quality: aching Radiation: none Relieving factors: nothing Exacerbating factors: nothing Associated symptoms: denies other symptoms Related Data Previous Rx's ?Medication ?Instructions ?Recorded acetaminophen 650 mg 650 mg PO Q8H PRN pain #30 t abs 01/09/23 tablet,extended release (Tylenol Arthritis Pain) cyclobenzaprine 10 mg tablet 10 mg PO TID PRN muscle s pasm #14 01/09/23 tabs buspirone 7.5 mg tablet 7.5 mg PO BID 30 days #60 ta bs 11/27/23 zolpidem 5 mg tablet 5 mg PO BEDTIME PRN sleep 30 days 11/27/23 #30 tabs cyclobenzaprine 10 mg tablet 10 mg PO TID PRN muscle s pasm #20 11/13/24 tabs tramadol 50 mg tablet 50 mg PO Q8H PRN severe pain 11/13/24 (scale score 7-10) #12 tabs cholecalciferol (vitamin D3) 25 25 mcg PO DAILY 90 day s #90 caps 02/03/25 mcg (1,000 unit) capsule acetaminophen 500 mg capsule 1,000 mg (2 x 500 mg) PO Q8H PRN 07/06/25 fever or pain #14 caps cyclobenzaprine 10 mg tablet 10 mg PO TID PRN muscle s pasm #14 07/06/25 tabs Allergies Allergy/AdvReac Type Severity Reaction Status Date / Time ibuprofen (From Motrin) Allergy Intermediate Hives,lip Verified 07/06/25 14:01 swelling Review of Systems 2 Review of Systems: Constitutional : No Fever, No Chills ENT/Mouth : No sore throat, No Rhinorrhea Eyes: No Eye Pain, No Swelling, No Redness Cardiovascular : No Chest Pain, No SOB Respiratory : No Cough, No Sputum Gastrointestinal : No Nausea, No Vomiting, No Diarrhea, No abdominal Pain Genitourinary : No Dysuria, No Hematuria Musculoskeletal : + joint pain, No Myalgias,+ Joint Swelling Skin : No Skin Lesions Neuro : No Weakness, No Numbness, No Headache All other systems reviewed and are negative Yes all other systems are reviewed and are negative Constitutional: Constitutional: Reports as per [facility] Past Medical History Medical History GERD (gastroesophageal reflux disease) Hypovitaminosis D Left arm pain Neck pain Pectus excavatum Personal history of COVID-19 Pure hypercholesterolemia Skin lesion Tubular adenoma Surgical History Hx of colonoscopy H/O bariatric surgery History of section Family History Family History Father Diabetes Hypertension Mother Diabetes Hypertension Maternal Grandfather Cancer Maternal Aunt Stomach cancer Social History Social History Housing: House Are you a primary intensive care ambulance paramedic to a significant other at home: Yes Alcohol intake: never Patient Tobacco Use Status: Never used Tobacco Smoked in Last 30 Days: No e-Cigarette/Vaping Use: Never Used Second Hand Smoke Exposure: No Use of substances other than those prescribed or required for medical reasons: No Advance Directives: No Advance Directives Information Provided: No service: No Current occupational status: employed 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 Current occupational exposures/hazards: No Cognitive needs: No Hearing needs: No Vision needs: No Physical Exam 2 Vital Signs: Vital Signs: Last Vital Signs Temp 98.4 F 07/06/25 13:58 Pulse 87 07/06/25 18:29 Resp 16 07/06/25 18:29 BP 102/61 07/06/25 18:29 Pulse Ox 98 07/06/25 18:29 O2 Del Method Room Air 07/06/25 18:29 BMI result Body Mass Index 24.6 Const: General: cooperative, comfortable and no acute distress O rientation/consciousness: patient oriented x3 Limitations: no limitations HEENT: Head: Yes normal to inspection, Yes normocephalic and Yes atraumatic Ears: hearing grossly normal bilaterally General nose exam: Normal external nose present Face and sinus: Yes normal facial exam Mouth: Normal oral and palatal mucosa present, oropharynx normal and moist mucous membranes Throat: Yes posterior oropharynx normal Eyes: General: appearance normal, both eyes and all related structures E yelids: Yes eyelids normal Conjunctivae: conjunctivae normal Sclerae: s clerae normal Pupils: Equal, round and reactive pupils present EOM: EOMs intact bilaterally Neck: Other: Tenderness palpation along the right trapezius muscle with spasm noted, no midline spine tenderness. No nuchal rigidity. Able to perform chin to chest. Decreased range of motion laterally, more pronounced when rotating the head to the right. Neck: Yes normal visual inspection, Yes full ROM and Yes no lymphadenopathy Lymphatic: no lymphadenopathy noted Chest: Chest palpation & inspection: normal inspection of the chest Resp: Effort & Inspection: normal respiratory effort and able to speak in complete sentences Auscultation: clear to auscultation bilaterally, no crackles, no rales, no rhonchi and no wheezes Cardio: Rate: regular rate Rhythm: regular rhythm Heart sounds: S1 normal heart sound present and S2 normal heart sound present GI: Inspection: Yes normal to inspection Skin: General skin exam: no rashes or lesions noted Trauma: no lacerations or abrasions Wounds: no wounds Neuro: General: patient oriented x3 and moves all extremities Cranial nerves: Yes Equal, round and reactive pupils present Extrem: Other: Left ankle with moderate edema noted overlying the lateral and medial malleolus with exquisite tenderness palpation along the Achilles tendon. Positive Farley test. Patient does have some slight erythema noted along her medial and lateral malleoli. Strong DP pulse. Distal sensation circulation intact. No calf tenderness. No pedal edema noted. Able to dorsi and plantar flex. General: Yes normal to inspection Right upper extremity: normal to inspection Left upper extremity: normal to inspection Right lower extremity: normal to inspection Course Reevaluation(s) Reevaluation #1: Myrna: This patient was signed out to me at change of shift pending the results of an ultrasound to evaluate the left Achilles tendon. The patient is a 59-year-old woman who injured her left ankle about a week ago. She has a an impressive degree of swelling at the ankle but the ankle itself does not really seem that tender. The tenderness seems to be more behind the ankle near the Achilles tendon. The calf itself seems very benign. I do not think she has a DVT. I think that the patient has been walking on this foot a great deal despite the injury she has had and that this has provoked a lot of swelling. She will be given crutches and an orthopedic boot. She will be given a work note for the next week off. She will need to follow up with Orthopedics. Coincidentally the patient was complaining of a recurrence of some chronic right neck pain that I do not think is related to the injury of her left ankle. She says that she is usually prescribed cyclobenzaprine for her neck which I have also prescribed. Time: 19:43 Medications Administered Discontinued Medications Generic Name Dose Route Start Last Admin Trade Name Ananya PRN Reason Stop Dose Admin Acetaminophen 975 mg 07/06/25 16:54 07/06/25 17:15 Acetaminophen 325 Mg Tablet PO 07/06/25 16:55 975 mg ONCE ONE Administration Medical Decision Making Medical Decision Making [facility] Narrative: This is a 59-year-old female who presents emergency department with concerns of left ankle pain status post inversion injury which occurred on Monday. On arrival, vital signs within normal limits. She is speaking full sentences under no acute distress. She also reports that over the last several days she has had some right-sided neck pain. Patient has been seen here in the past for muscle spasms in her neck, and states that her current symptoms are similar to the spasm she has had in the neck in the past. No known fevers. She does endorse chills, diffuse body aches. Left ankle with moderate edema, erythema, and tenderness palpation along the Achilles tendon. Patient able to plantar and dorsiflex however positive Farley test, concerning for Achilles tendon rupture. Injury was 1 week ago, will obtain ultrasound to rule out any tendon involvement. We will also order basic labs given slight erythema and edema. Differential diagnoses include Achilles tendon partial tear, rupture, cellulitis, malleoli fracture, sprain, strain. Less likely septic arthritis as patient does have good range of motion of the ankle 5:25 PM 07/06/2025 (Hannah Evans PA-C): Labs, ultrasound, and COVID/flu swabs obtained. Awaiting results. X-ray of the left ankle was performed, revealing no acute bony abnormalities. 6:08 PM 07/06/2025 (Hannah Evans PA-C): Labs returned, she has no leukocytosis, she has a normocytic anemia with an H&H of 11.8/36. ESR elevated at 61, CRP elevated at 9.97, chemistry revealing no significant electrolyte derangement. Negative for COVID and flu. Awaiting ultrasound. Sign-out given to my colleague pending ultrasound. Differential Diagnosis Differential Diagnoses: The differential diagnosis associated with the presentation includes See above Lab Data [facility] Lab Attestation statement: I reviewed the patient's lab results. See [facility] 07/06/25 17:15 07/06/25 17:15 Labs: Lab Results 07/06/25 07/06/25 Range/Units 17:15 17:34 WBC 8.6 (4.8-10.8) X10*3/uL RBC 4.14 L (4.20-5.50) X10*6/uL Hgb 11.8 L (12.0-16.0) g/dl Hct 36.0 L (37.0-47.0) % MCV 87.0 (80.0-98.0) fL MCH 28.5 (27.0-33.0) pg MCHC 32.8 (31.0-35.0) g/dl RDW 13.1 (11.0-16.0) % Plt Count 346 (160-400) X10*3/uL MPV 9.0 L (9.4-12.3) fL Immature Gran % (Auto) 0.1 (0.0-0.4) % Neut % (Auto) 58.7 (45-73) % Lymph % (Auto) 29.1 (20-40) % Mcminn % (Auto) 11.0 (2-11) % Eos % (Auto) 0.9 (0-4) % Baso % (Auto) 0.2 (0-2) % Lymph # (Auto) 2.5 (1.2-4.9) X10*3/uL Mcminn # (Auto) 1.0 (0.1-1.2) X10*3/uL Eos # (Auto) 0.1 (0.0-0.4) X10*3/uL Baso # (Auto) 0.0 (0.0-0.2) X10*3/uL Abs Immat Gran (auto) 0.01 (0.00-0.03) X10*3/uL Absolute Neuts (auto) 5.0 (2.0-8.3) x10*3/uL Absolute Nucleated RBC 0.000 (0.0-0.012) X10*3/uL Nucleated RBC % (auto) 0.0 (0.0-0.2) /100WBC ESR 61 H (0-20) MM/HR Sodium 141 (135-145) mmol/L Potassium 4.5 (3.3-5.1) mmol/L Chloride 105 (96-108) mmol/L Carbon Dioxide 28 (22-29) mmol/L Anion Gap 13 (12-20) BUN 14 (9-16) mg/dL Creatinine 0.51 (0.5-1.4) mg/dL Estim Creat Clear Calc 103.8 Estimated GFR > 60 Random Glucose 70 (60-115) mg/dL Calcium 9.7 (8.4-10.2) mg/dL Total Bilirubin 0.3 (0.0-1.0) mg/dL Direct Bilirubin 0.1 (0.0-0.5) mg/dL AST 27 (5-31) U/L ALT 27 (0-31) U/L Alkaline Phosphatase 81 (39-117) U/L C-Reactive Protein 9.97 H (< or = 0.50) mg/dL Total Protein 7.7 (6.5-8.0) g/dL Albumin 4.1 (3.5-5.0) g/dL COVID-19 (BRIGIDA) Negative (Negative) COVID-19 Clin Com See Note Influenza Type A (JONATHAN) Negative (Negative) Influenza Type B (JONATHAN) Negative (Negative) Influenza A & B Note See Note Radiology Impression Discussion of test interpretation with radiology: I have reviewed the radiologist's reading. Radiologist Impression: CLINICAL HISTORY: twisted pain swelling Radiographs of the left ankle, 3 views Comparison: None available Findings: There is no fracture or dislocation. The ankle mortise is congruent. Mild degenerative change. Calcaneal enthesophytes. Vascular calcifications. Soft tissue calcifications Soft tissue swelling. Impression: No fracture. This document has been electronically signed by: Polly España MD on 07/06/2025 15:14:10 Dictated By: Polly Valdes MD Discharge Plan Discharge Clinical Impression: Left ankle sprain, Neck pain on right side Patient Disposition: Home, Self-Care Instructions: Crutch Instructions (ED), Walking Boot (ED) Additional Instructions: I think he should take at least 1 week off work so that you can rest your left ankle. As much as you can over the next several days please keep the left ankle elevated and stay off the foot as much as possible. When you do move around please use the orthopedic boot and the crutches. Use the crutches to keep weight off the foot. You may use acetaminophen and cyclobenzaprine as needed for pain. Please contact the orthopedic office in the morning for a follow up appointment regarding your left ankle. Please also follow up with your primary care doctor regarding her neck pain. Return to the emergency room if significantly worse. Prescriptions: New cyclobenzaprine 10 mg tablet 10 mg PO TID PRN (Reason: muscle spasm) Qty: 14 0RF acetaminophen 500 mg capsule 1,000 mg PO Q8H PRN (Reason: fever or pain) Qty: 14 0RF No Action cholecalciferol (vitamin D3) 25 mcg (1,000 unit) capsule 25 mcg PO DAILY 90 Days Qty: 90 1RF cyclobenzaprine 10 mg tablet 10 mg PO TID PRN (Reason: muscle spasm) Qty: 14 0RF acetaminophen [Tylenol Arthritis Pain] 650 mg tablet extended release 650 mg PO Q8H PRN (Reason: pain) Qty: 30 0RF cyclobenzaprine 10 mg tablet 10 mg PO TID PRN (Reason: muscle spasm) Qty: 20 0RF tramadol 50 mg tablet 50 mg PO Q8H PRN (Reason: severe pain (scale score 7-10)) Qty: 12 0RF zolpidem 5 mg tablet 5 mg PO BEDTIME PRN (Reason: sleep) 30 Days Qty: 30 0RF buspirone 7.5 mg tablet 7.5 mg PO BID 30 Days Qty: 60 0RF Ref[place]: [facility] [Provider Group] Vanessa Puri MD [Primary Care Provider, Internal Medicine] Stand Alone Forms: Work/School Release Print Language: Croatian
--- OUTSIDE RECORDS SUMMARY | 2025-07-06 15:48 | XMS_ITS | Clinical Summary ---
Author Organization [facility] it Address [id number] [place] [id number] Care Team Providers Care Chancery Clerk Name Role Phone Vanessa Hilario MD Primary Care Provider [phone] Surgical History Surgery Date Site/Laterality Comments SECTION PROCEDURE: LA DELIVERY ONLY Family History Medical History Relation [...] 2016 Zoster Vaccines (1 of 2) 2016 Depression Screening 09/04/2024 COVID-19 Vaccine ( - 2023-2 5 season) 2025 Influenza Vaccine (#1) 2025 RSV Immunization Adult Patie nts (1 - 1-dose 75+ series) 2041 HIB Vaccines Aged Out No longer eligi [...] age to complete this topic Care Teams Chancery Clerk Relationship Specialty Start Date End Date Vanessa Hilario MD [address] [place] [address] , [address] [facility] D[facility]A: [facility] Freed PCP - General Internal Medicine 01/17/19
[2025-07-06 17:21] LABS: MANUAL DIFF FLAG NO
[2025-07-06 17:23] LABS: Hematocrit 36.0 % (37.0-47.0); Hemoglobin 11.8 g/dl (12.0-16.0); Imm Gran Abs Auto 0.01 X10*3/uL (0.00-0.03); Imm Gran Pct Auto 0.1 % (0.0-0.4); Lymphocytes Absolute Auto 2.5 X10*3/uL (1.2-4.9); Mean Corpuscular HGB Conc 32.8 g/dl (31.0-35.0); Mean Corpuscular Hemoglobin 28.5 pg (27.0-33.0); Mean Corpuscular Volume 87.0 fL (80.0-98.0); NRBC Abs Auto 0.000 X10*3/uL (0.0-0.012); NRBC Pct Auto 0.0 /100WBC (0.0-0.2); Platelet Count 346 X10*3/uL (160-400); Red Blood Count 4.14 X10*6/uL (4.20-5.50); White Blood Count 8.6 X10*3/uL (4.8-10.8)
[2025-07-06 17:35] LABS: Alanine Aminotransferase 27 U/L (0-31); Albumin Level 4.1 g/dL (3.5-5.0); Alkaline Phosphatase 81 U/L (39-117); Anion Gap 13 (12-20); Aspartate Amino Transferase 27 U/L (5-31); Blood Urea Nitrogen 14 mg/dL (9-16); Calcium 9.7 mg/dL (8.4-10.2); Carbon Dioxide 28 mmol/L (22-29); Chloride 105 mmol/L (96-108); Creatinine Clr Calc Pharmacy 103.8; Estimated Glomerular Filt Rate > 60; Potassium 4.5 mmol/L (3.3-5.1); Sodium 141 mmol/L (135-145); Total Protein 7.7 g/dL (6.5-8.0)
[2025-07-06 17:57] LABS: COVID-19 Test Negative (Negative); IDNOW Serial# 55D5AD1C; IDNOW Serial# 58CA691E; Influenza B2 Negative (Negative)
[2025-07-06 18:01] LABS: Erythrocyte Sedimentation Rate 61 MM/HR (0-20)
[2025-07-06 18:29] VITALS: BP 102/61; PULSE 87; RESP 16; O2SAT 98
[2025-07-06 19:58] VITALS: BP 102/61; PULSE 87; RESP 16; TEMP -17.7; TEMP 0; O2SAT 98
== END 2025-07-06 19:58 | disposition home or self-care (01) ==
PROVIDERS: Physician Assistant Medical; Emergency Provider Emergency Medicine; PCP Internal Medicine
DX: S93.402A Sprain of unspecified ligament of left ankle, initial encounter (principal); M54.2 Cervicalgia; M25.572 Pain in left ankle and joints of left foot; X58.XXXA Exposure to other specified factors, initial encounter; Y93.9 Activity, unspecified; Y92.9 Unspecified place or not applicable; Y99.8 Other external cause status; Z11.52 Encounter for screening for COVID-19
CPT/HCPCS: 36415; 73610; 76882; 80048; 80076; 85025; 85652; 86140; 87502; 87635; 99284

== ENCOUNTER → 2025-07-06 14:05 | Outpatient (BNV) | payer OTHER, SELFPAY | PROVIDERS: Emergency Provider Emergency Medicine Emergency Medical Services; PCP Internal Medicine; Visit Provider Radiology Diagnostic Radiology | DX: M79.662 Pain in left lower leg (principal); M25.572 Pain in left ankle and joints of left foot; R22.42 Localized swelling, mass and lump, left lower limb | CPT/HCPCS: 73610; 76882 ==

== ENCOUNTER 2025-07-11 10:01 | Outpatient (AMB) | payer OTHER, SELFPAY ==
--- NOTE | 2025-07-11 10:24 | MHC.OFFVIS ---
Vital Signs 07/11/25 10:25 Height 5 ft 4 in Weight 143 lb BMI 24.5 Intake Visit Reasons: Left ankle sprain/ED follow Intake Note: nicki is a 59 year old female who presents today as a new patient for an evaluation of her left ankle sprain. Patient states injury occurred after walking down the stairs and twisting her ankle and she was seen at [facility] where she was given a cam boot and prescribed Tylenol and has found no relief. She has no previous history of fractures or sprains. Imaging in Patient chart. Optometric Technologist Name: [id number] Allergies ibuprofen (From Motrin) Allergy (Intermediate, Verified 07/06/25 14:01) Hives,lip swelling HPI Comments Details: The patient is a 59-year-old female with a past medical history as seen below presenting with left ankle pain following a twisting injury while walking down the stairs. The incident occurred when she was descending stairs, resulting in a twisted ankle and subsequent pain. The patient reports significant pain and swelling in the ankle, which was more pronounced initially. Patient was seen in the ED where she underwent xrays and and an ultrasound. Patient states the pain is localized to the posterior aspect of the leg in the distal area of the Achilles tendon. She denies any pain to the calf. Patient has been WBAT in a CAMboot. She has been taking Tylenol with mild relief. Denies any other pedal concerns. [facility] Medical History (Updated 07/12/25 @ 10:48 by Becca Abraham DPM) Left leg injury Left leg pain Left Achilles tendinitis Tubular adenoma Hypovitaminosis D Personal history of COVID-19 Left arm pain Neck pain Pure hypercholesterolemia Skin lesion Pectus excavatum GERD (gastroesophageal reflux disease) Surgical History Hx of colonoscopy H/O bariatric surgery History of section Family History Father Diabetes Hypertension Mother Diabetes Hypertension Maternal Grandfather Cancer Maternal Aunt Stomach cancer Social History Housing: House Are you a primary neonatal intensive care unit nurse to a significant other at home: Yes Alcohol intake: never Patient Tobacco Use Status: Never used Tobacco e-Cigarette/Vaping Use: Never Used Second Hand Smoke Exposure: No service: No Current occupational status: employed 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 Denies calf pain. Physical Exam Vital Signs: BMI result Body Mass Index 24.5 Extrem Other: LLE Focused Physical Exam: Derm: No open lesions, abrasions, or wounds noted. No ecchymosis or discoloration noted. No clinical signs of infection noted. Skin supple and turgor WNL. Vasc: DP/PT pulses palpable. CFT < 3 secs. Temp gradient warm to warm. No varicosities noted. Mild edema noted. Pedal hair absent. Neuro: Protective sensations grossly intact. MSK: Pain on palpation to the posterior aspect of the ankle/leg in the distal area of the Achilles tendon. Pain at the watershed area of the Achilles. Pain with ROM of the ankle, limited due to guarding from pain. No crepitus or fluctuance noted. No palpable dell noted. Negative Farley's test noted. No pain on palpation to the calf muscle. ROM of the forefoot WNL. Antalgic gait noted with the use of a CAMboot. No pain on palpation to the anterior aspect of the ankle. No pain on palpation to lateral ankle ligaments or Deltoid ligaments. Office Procedures AMB Podiatry Dressing Details of Procedure: Applied a stockinet, cast padding, and Jasper bandage to the LLE with the use of a CAMboot. 25346 - Short leg splint Procedure code (CPT) selection complete Results Reviewed Results Reviewed: Podiatry Read of left ankle xray (07/06/25): Bone spur noted to the plantar aspect of the calcaneus. Minimal bone spur formation noted to the posterior aspect of the calcaneus. Kager's triangle not visualized. Vascular calcifications noted. Joint spacing WNL. acute fractures or dislocations noted. Left ankle xray (07/06/25): Findings: There is no fracture or dislocation. The ankle mortise is congruent. Mild degenerative change. Calcaneal enthesophytes. Vascular calcifications. Soft tissue calcifications Soft tissue swelling. Impression: No fracture. Left leg ultrasound (07/06/25): Findings: Grayscale and color Doppler images were obtained of the Achilles tendon with a high-frequency linear transducer. The tendon is intact. The tendon is mildly increased in size and echogenicity, measuring up to 0.6 cm in thickness with a convex appearance. No fluid collection. Impression: No tear of the Achilles tendon. Achilles tendinopathy could be considered. Assessment & Plan Assessment & Plan (1) Left Achilles tendinitis: Code(s): M76.62 - Achilles tendinitis, left leg Category: Medical (2) Left leg pain: Code(s): M79.605 - Pain in left leg Category: Medical (3) Left leg injury: Code(s): S89.92XA - Unspecified injury of left lower leg, initial encounter Category: Medical Qualifiers: Encounter type: initial encounter Qualified Code(s): S89.92XA - Unspecified injury of left lower leg, initial encounter Plan Patient was informed and verbally consented to the use of an ambient scribe for clinic note documentation during this visit. I discussed with the patient that the x-rays and ultrasound show no fractures or tendon ruptures, which is a positive outcome. I explained the importance of using the boot and the potential need for physical therapy if the pain persists. We talked about the expected recovery time, which could be up to two months, and the plan for follow-up in three weeks. - Prescribed Medrol Dose To to reduce swelling and manage pain. - Applied a stockinet, cast padding, and JASPER bandage to the LLE with the use of a CAMboot. - Patient may be WBAT to the LLE in a CAMboot. - Patient is to adhere to RICE protocol. - If pain persists, will consider immobilization, physical therapy, heel lifts, further imaging, or surgery if conservative treatment is ineffective. - Provided a work note. RTC in 3 weeks. Orders: Orders AMB Podiatry Dressing 07/11/25 M76.62 - Achilles tendinitis, left leg, M79.605 - Pain in left leg, S89.92XA - Unspecified injury of left lower leg, initial encounter Medications: New methylprednisolone (Medrol (To)) PO PER PKG DIR 21 ea 0RF M76.62 - Achilles tendinitis, left leg, M79.605 - Pain in left leg, S93.402A - Sprain of unspecified ligament of left ankle, initial encounter Coding Level of Care Code New Pt Level 4 (31699) Diagnoses Left Achilles tendinitis M76.62 Left leg pain M79.605 Injury of left lower extremity, initial encounter S89.92XA Encounter type: initial encounter CPT Codes Podiatry Dressing - CPT: 01177 - Short leg splint ([id number]) Time Spent (min) 55
[2025-07-11 10:25] VITALS: BMI 24.5
--- OUTSIDE RECORDS SUMMARY | 2025-07-11 11:49 | XMS_ITS | Clinical Summary ---
Author Organization [facility] it Address [id number] [place] [id number] Care Team Providers Care Endoscopy Support Specialist Name Role Phone Vanessa Hilario MD Primary Care Provider [phone] Surgical History Surgery Date Site/Laterality Comments SECTION PROCEDURE: [place] DELIVERY ONLY Family History Medical History Relation [...] 2) 2016 Depression Screening 09/04/2024 COVID-19 Vaccine (1 - 2023-2 5 season) 2025 Influenza Vaccine [...] age to complete this topic Care Teams Endoscopy Support Specialist Relationship Specialty Start Date End Date Vanessa Hilario MD [address] [place] [address] , [address] [facility] PCP - General Internal Medicine 01/17/19
== END 2025-07-11 10:42 | disposition home or self-care (01) ==
LOC: HO.HPODS 10:02
PROVIDERS: PCP Internal Medicine; Visit Provider Student in an Organized Health Care Education/Training Program
DX: M76.62 Achilles tendinitis, left leg (principal); M79.605 Pain in left leg; S89.92XA Unspecified injury of left lower leg, initial encounter
CPT/HCPCS: 29515; 99204

== ENCOUNTER → 2025-07-11 10:01 | Outpatient (BNVA) | payer OTHER, SELFPAY | PROVIDERS: PCP Internal Medicine; Visit Provider Student in an Organized Health Care Education/Training Program | DX: S89.92XA Unspecified injury of left lower leg, initial encounter (principal); M79.605 Pain in left leg; M76.62 Achilles tendinitis, left leg | CPT/HCPCS: 29515; 99202 ==

== ENCOUNTER 2025-07-28 10:51 | Outpatient (AMB) | payer OTHER, SELFPAY ==
--- NOTE | 2025-07-28 11:03 | A.OFFVIS_ITS ---
Vital Signs 07/28/25 11:04 Height 5 ft 4 in Weight 143 lb BMI 24.5 Intake Visit Reasons: eft ankle sprain & Achilles tendinitis Intake Note: Debby is a 59 year old female who presents today for a follow up on her left ankle sprain and Achilles tendonitis. At her last visit she was prescribed Medrol Dose to and she was advised to follow the RICE protocol. A stockinet, cast padding, and ASHKAN bandage to the LLE was applied and she was provided a CAMboot. Patient reports she had removed the wrap due to it getting wet and she also had stopped using the walking boot. She states she is currently not experiencing pain at this time. Furnace Cleaner Required: Yes Furnace Cleaner Services: Furnace Cleaner Present Furnace Cleaner Name: [id number] Allergies ibuprofen (From Motrin) Allergy (Intermediate, Verified 07/28/25 11:05) Hives,lip swelling HPI Comments Details: The patient is a 59-year-old female presenting for a follow up for a left Achilles tendinitis following an injury. Patient states she has noticed a reduction in swelling and pain and states she feels as though her symptoms have resolved. Patient states she hears occasional cracking with ankle ROM. She states she stopped using her CAMboot and has been WBAT to the LLE. She states the Medrol Dose To provided relief. She denies any new pedal injuries. Denies any other pedal concerns. [facility] Medical History (Updated 07/29/25 @ 20:04 by Becca Abraham DPM) Left leg injury Left leg pain Left Achilles tendinitis Tubular adenoma Hypovitaminosis D Personal history of COVID-19 Left arm pain Neck pain Pure hypercholesterolemia Skin lesion Pectus excavatum GERD (gastroesophageal reflux disease) Surgical History Hx of colonoscopy H/O bariatric surgery History of section Family History Father Diabetes Hypertension Mother Diabetes Hypertension Maternal Grandfather Cancer Maternal Aunt Stomach cancer Social History Housing: House Are you a primary director of home care hospice to a significant other at home: Yes Alcohol intake: never Patient Tobacco Use Status: Never used Tobacco e-Cigarette/Vaping Use: Never Used Second Hand Smoke Exposure: No service: No Current occupational status: employed 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 Physical Exam Vital Signs: BMI result Body Mass Index 24.5 Extrem Other: LLE Focused Physical Exam: Derm: No open lesions, abrasions, or wounds noted. No ecchymosis or discoloration noted. No clinical signs of infection noted. Skin supple and turgor WNL. Vasc: DP/PT pulses palpable. CFT < 3 secs. Temp gradient warm to warm. No varicosities noted. No edema noted. Pedal hair absent. Neuro: Protective sensations grossly intact. MSK: No pain on palpation to the posterior aspect of the ankle/leg in the distal area of the Achilles tendon. No Pain at the watershed area of the Achilles. No Pain with ROM of the ankle, limited due to guarding from pain. Crepitus noted with ankle ROM. No fluctuance noted. No palpable dell noted. Negative Farley's test noted. No pain on palpation to the calf muscle. ROM of the forefoot WNL. Non-antalgic gait noted without the use of a CAMboot. No pain on palpation to the anterior aspect of the ankle. No pain on palpation to lateral ankle ligaments or Deltoid ligaments. Results Reviewed Results Reviewed: Podiatry Read of left ankle xray (07/06/25): Bone spur noted to the plantar aspect of the calcaneus. Minimal bone spur formation noted to the posterior aspect of the calcaneus. Kager's triangle not visualized. Vascular calcifications noted. Joint spacing WNL. acute fractures or dislocations noted. Left ankle xray (07/06/25): Findings: There is no fracture or dislocation. The ankle mortise is congruent. Mild degenerative change. Calcaneal enthesophytes. Vascular calcifications. Soft tissue calcifications Soft tissue swelling. Impression: No fracture. Left leg ultrasound (07/06/25): Findings: Grayscale and color Doppler images were obtained of the Achilles tendon with a high-frequency linear transducer. The tendon is intact. The tendon is mildly increased in size and echogenicity, measuring up to 0.6 cm in thickness with a convex appearance. No fluid collection. Impression: No tear of the Achilles tendon. Achilles tendinopathy could be considered. Assessment & Plan Assessment & Plan (1) Left Achilles tendinitis: Code(s): M76.62 - Achilles tendinitis, left leg Category: Medical (2) Left leg pain: Code(s): M79.605 - Pain in left leg Category: Medical (3) Left leg injury: Code(s): S89.92XA - Unspecified injury of left lower leg, initial encounter Category: Medical Qualifiers: Encounter type: subsequent encounter Qualified Code(s): S89.92XD - Unspecified injury of left lower leg, subsequent encounter Plan Patient was informed and verbally consented to the use of an ambient scribe for clinic note documentation during this visit. I discussed importance of the use of an ankle brace to prevent further discomfort, especially when returning to work. I also mentioned that if symptoms worsen, may consider PT. - Advise to adhere to RICE protocol prn. - Advised patient to wear the ankle brace while ambulating and with activity. Provided in office. - Provided patient with a work note to return to work without restrictions. RTC as needed. Coding Level of Care Code Est Pt Level 3 (72976) Diagnoses Left Achilles tendinitis M76.62 Left leg pain M79.605 Injury of left lower extremity, subsequent encounter S89.92XD Encounter type: subsequent encounter Time Spent (min) 24
[2025-07-28 11:04] VITALS: BMI 24.5
== END 2025-07-28 11:23 | disposition home or self-care (01) ==
LOC: HO.HPODS 10:52
PROVIDERS: PCP Internal Medicine; Visit Provider Student in an Organized Health Care Education/Training Program
DX: M76.62 Achilles tendinitis, left leg (principal); M79.605 Pain in left leg; S89.92XD Unspecified injury of left lower leg, subsequent encounter
CPT/HCPCS: 99213

== ENCOUNTER → 2025-07-28 10:51 | Outpatient (BNVA) | payer OTHER, SELFPAY | PROVIDERS: PCP Internal Medicine; Visit Provider Student in an Organized Health Care Education/Training Program | DX: S89.92XD Unspecified injury of left lower leg, subsequent encounter (principal); M76.72 Peroneal tendinitis, left leg; X58.XXXD Exposure to other specified factors, subsequent encounter | CPT/HCPCS: 99212 ==